=== PATIENT | female | born 1945 | race Caucasian/White ===

== ENCOUNTER 2016-06-17 11:55 | Emergency (ER) | payer MEDICARE ==
[2016-06-17 15:16] VITALS: BP 110/70
--- NOTE | 2016-06-17 15:41 | UC ---
Complaint Female HPI - HPI Summary HPI Summary: patient woke up with lower abdominal pain, dysuria and hematuria - History Of Current Complaint Chief Complaint: UCGU Stated Complaint: URINARY COMPLAINT Time Seen by Provider: 06/17/16 15:33 Hx Obtained From: Patient Hx Last Menstrual Period: n/a ?: No Onset/Duration: Sudden Onset Severity Initially: Mild Severity Currently: Mild Pain Intensity: 3 Pain Scale Used: 0-10 Numeric Character: Dull, Burning Aggravating Factor(s): Urination Alleviating Factor(s): Nothing Associated Signs And Symptoms: Positive: Negative - Allergies/Home Medications Allergies/Adverse Reactions: Allergies Allergy/AdvReac Type Severity Reaction Status Date / Time Codeine Allergy Severe Anaphylatic Verified 06/17/16 15:12 Shock Penicillins Allergy Severe Rash Verified 06/17/16 15:12 Metronidazole [From Flagyl] Allergy Intermediate neuropathy Verified 06/17/16 15 :12 Sulfa Drugs Allergy Intermediate Rash Verified 06/17/16 15:12 Dicyclomine [From Bentyl] Allergy tremor Verified 06/17/16 15:12 feeling in head/ brain Statins Allergy Muscle Ache Verified 06/17/16 15:12 Venlafaxine [From Effexor] Allergy Shakes Verified 06/17/16 15:12 Tramadol AdvReac Mild Anxiety Verified 06/17/16 15:12 PMH/Surg Hx/FS Hx/Imm Hx Previously Healthy: Yes Endocrine History Of: Reports: Thyroid Disease - Hypothyroidism Denies: Diabetes Cardiovascular History Of: Reports: Cardiac Disorders - cathetirization, no blockage Denies: Hypertension Respiratory History Of: Reports: Asthma Cancer History Of: Denies: Breast Cancer - Surgical History Surgical History: Yes Surgery Procedure, Year, and Place: adela. D&C. laparoscopy--1980, 1987, 2012. cardiac catheterization. Fx ankle 1979. B/L SALPINGECTOMY--12/2015. B/ L OOPHERECTOMY--12/2015 - Family History Known Family History: Positive: Hypertension - Social History Alcohol Use: None Substance Use Type: None Smoking Status (MU): Never Smoked Tobacco - Immunization History Most Recent Influenza Vaccination: Fall 2014 Most Recent Tetanus Shot: 2007 Review of Systems Constitutional: Negative Skin: Negative Eyes: Negative ENT: Negative Respiratory: Negative Cardiovascular: Palpitations Gastrointestinal: Abdominal Pain Genitourinary: Dysuria, Hematuria, Urgency Motor: Negative Neurovascular: Negative Musculoskeletal: Negative Neurological: Negative Psychological: Negative All Other Systems Reviewed And Are Negative: Yes Physical Exam Triage Information Reviewed: Yes Appearance: Well-Appearing, Well-Nourished, Pain Distress Vital Signs: Initial Vital Signs Temp 98.3 F 06/17/16 15:10 Pulse 74 06/17/16 15:10 Resp 16 06/17/16 15:10 BP 110/70 06/17/16 15:10 Pulse Ox 100 06/17/16 15:10 Vital Signs Reviewed: Yes Eye Exam: Normal Eyes: Positive: Conjunctiva Clear ENT Exam: Normal ENT: Positive: Normal ENT inspection, Pharyngeal erythema, TMs normal Dental Exam: Normal Neck exam: Normal Neck: Positive: Supple, Nontender, No Lymphadenopathy Respiratory Exam: Normal Respiratory: Positive: Chest non-tender, Lungs clear, Normal breath sounds Cardiovascular Exam: Normal Cardiovascular: Positive: RRR, No Murmur, Pulses Normal Abdominal Exam: Normal Abdomen Description: Positive: Nontender, No Organomegaly, Soft Bowel Sounds: Positive: Present Musculoskeletal Exam: Normal Musculoskeletal: Positive: Strength Intact, ROM Intact, No Edema Neurological Exam: Normal Neurological: Positive: Alert, Muscle Tone Normal Psychological Exam: Normal Skin Exam: Normal Complaint Female Dx - Course Course Of Treatment: hx obtained, exam performed, UA positive, medication prescribed. - Differential Dx/Diagnosis Differential Diagnosis/HQI/PQRI: Sexually Transmitted Disease, Ureteral Stone, Urinary Tract Infection Provider Diagnoses: UTI Discharge - Discharge Plan Condition: Stable Disposition: HOME Prescriptions: Nitrofurantoin Monohyd Macro [Macrobid] 100 mg PO BID #10 cap Patient Education Materials: Urinary Tract Infection in Women (ED) Referrals: Derrell Gandara MD [Primary Care Provider] - Additional Instructions: Take the medication as prescribed. Increase your fluid intake. Your urine was sent for culture.
== END 2016-06-17 15:50 | disposition home or self-care (01) ==
LOC: UCCORT 11:55
DX: N39.0 Urinary tract infection, site not specified (principal); Z88.5 Allergy status to narcotic agent; Z88.0 Allergy status to penicillin; Z88.2 Allergy status to sulfonamides; Z88.8 Allergy status to other drugs, medicaments and biological substances; J45.909 Unspecified asthma, uncomplicated
CPT/HCPCS: 87086; 99212; G0463

== ENCOUNTER 2016-11-26 07:19 | Emergency (ER) | payer MEDICARE ==
[2016-11-26 07:54] VITALS: BP 120/85
--- NOTE | 2016-11-26 07:57 | UC ---
Lower Extremity/Ankle HPI - HPI Summary HPI Summary: left foot pain and swelling x 1 days has been on a long walk/ hike few days ago no known injury - History of Current Complaint Chief Complaint: UCLowerExtremity Stated Complaint: LEFT FOOT PAIN Time Seen by Provider: 11/26/16 07:40 Hx Obtained From: Patient, Family/Scrummaster Hx Last Menstrual Period: n/a Onset/Duration: Gradual Onset, Lasting Days - 1, Still Present Severity Initially: Moderate Severity Currently: Moderate Aggravating Factor(s): Standing, Ambulation Alleviating Factor(s): Nothing Able to Bear Weight: Yes - Allergies/Home Medications Allergies/Adverse Reactions: Allergies Allergy/AdvReac Type Severity Reaction Status Date / Time Codeine Allergy Severe Anaphylatic Verified 11/26/16 07:23 Shock Penicillins Allergy Severe Rash Verified 11/26/16 07:23 Metronidazole [From Flagyl] Allergy Intermediate neuropathy Verified 11/26/16 07 :23 Sulfa Drugs Allergy Intermediate Rash Verified 11/26/16 07:23 Dicyclomine [From Bentyl] Allergy tremor Verified 11/26/16 07:23 feeling in head/ brain Statins Allergy Muscle Ache Verified 11/26/16 07:23 Venlafaxine [From Effexor] Allergy Shakes Verified 11/26/16 07:23 Tramadol AdvReac Mild Anxiety Verified 11/26/16 07:23 Home Medications: Home Medications Azelastine 0.15% NASAL(NF) [Astepro 0.15% NASAL (NF)] 1 spray NASAL DAILY [History Confirmed 11/26/16] PMH/Surg Hx/FS Hx/Imm Hx Previously Healthy: Yes - Surgical History Surgical History: Yes Surgery Procedure, Year, and Place: adela. D&C. laparoscopy--1980, 1987, 2012. cardiac catheterization. Fx ankle 1979. B/L SALPINGECTOMY--12/2015. B/ L OOPHERECTOMY--12/2015 - Family History Known Family History: Positive: Hypertension - Social History Alcohol Use: None Substance Use Type: None Smoking Status (MU): Never Smoked Tobacco - Immunization History Most Recent Influenza Vaccination: Fall 2014 Most Recent Tetanus Shot: 2007 Review of Systems Constitutional: Negative Skin: Negative Eyes: Negative ENT: Negative Respiratory: Negative Cardiovascular: Negative Musculoskeletal: Other: - left foot and ankle pain All Other Systems Reviewed And Are Negative: Yes Physical Exam Triage Information Reviewed: Yes Appearance: Well-Appearing, No Pain Distress, Well-Nourished Vital Signs: Initial Vital Signs Temp 98 F 11/26/16 07:28 Pulse 65 11/26/16 07:28 Resp 18 11/26/16 07:28 BP 120/85 11/26/16 07:28 Pulse Ox 98 11/26/16 07:28 Vital Signs Reviewed: Yes Eyes: Positive: Conjunctiva Clear ENT: Positive: Normal ENT inspection, Hearing grossly normal, Pharynx normal Neck exam: Normal Neck: Positive: Supple, Nontender Respiratory: Positive: Chest non-tender, Lungs clear, Normal breath sounds Cardiovascular: Positive: RRR, No Murmur, Pulses Normal Musculoskeletal: Positive: Other: - left ankle : + mild swelling lateral ankle, mild tenderenss lateral ankle , no ecchymosis, good ROM , good strength left foot: no swelling, + tenderness 5th metatarsal mid shaft Lower Extremity Course/Dx - Differential Dx/Diagnosis Provider Diagnoses: strain left foot. strain left ankle Discharge - Discharge Plan Condition: Stable Disposition: HOME Patient Education Materials: Ankle Strain (ED), Foot Sprain (ED) Referrals: Derrell Gandara MD [Primary Care Provider] - 7 Days
--- NOTE | 2016-11-26 08:12 | RAD ---
INDICATION: Left foot pain. TECHNIQUE: 3 views of the left foot were obtained. FINDINGS: The bones are in normal alignment. No fracture is seen. Joint spaces appear maintained. There are small calcaneal spurs. IMPRESSION: 1. NO EVIDENCE FOR FRACTURE. 2. SMALL CALCANEAL SPURS.
== END 2016-11-26 08:10 | disposition home or self-care (01) ==
LOC: UCCORT 07:19
DX: S96.912A Strain of unspecified muscle and tendon at ankle and foot level, left foot, initial encounter (principal); X58.XXXA Exposure to other specified factors, initial encounter; Y93.9 Activity, unspecified; Y92.9 Unspecified place or not applicable; M77.32 Calcaneal spur, left foot; Z90.49 Acquired absence of other specified parts of digestive tract; Z88.5 Allergy status to narcotic agent; Z88.1 Allergy status to other antibiotic agents; Z88.0 Allergy status to penicillin; Z88.2 Allergy status to sulfonamides
CPT/HCPCS: 99212; G0463

== ENCOUNTER 2017-11-05 12:25 | Emergency (ER) | payer MEDICARE ==
--- OUTSIDE RECORDS SUMMARY | 2017-11-05 12:45 | XMS REPORT ---
:1945 Author Name sound, ultra Care Team Providers Name Role Phone sound, ultra Unavailable Unavailable PROBLEMS Type Condition ICD9-CM [id number] Onset Condition SNOMED Code Code Code Dates Status Problem Other ovarian N83.29 Active 82473369 cysts Problem Benign essential R31.1 Active 245961226021894 microscopic hematuria Problem Unspecified N83.20 Active 19085229 ovarian cysts Problem Family history of Z80.0 Active 967115126 malignant neoplasm of digestive organs Problem Anal spasm K59.4 Active 55633257 Problem Postmenopausal N95.2 Active 01193001 atrophic vaginitis ALLERGIES No Information ENCOUNTERS Encounter Location Date Diagnosis [facility] Apr, [place] [id number] [facility] Apr, [place] [id number] [facility] October, [facility] [place] [id number] other specified body structures R93.8 ; Postmenopausal atrophic vaginitis N95.2 and Encounter for screening mammogram for malignant neoplasm of breast Z12.31 [facility] 14 Oct, 2017 [facility] [place] [id number] other specified body structures R93.8 [facility] Sep, [place] [id number] [facility] Jun, [facility] [place] [id number] other specified body structures R93.8 and Postmenopausal atrophic vaginitis N95.2 [place] [facility] Jun, [facility] [place] [id number] other specified body structures R93.8 [facility] Apr, [facility] [place] [id number] other specified body structures R93.8 and Postmenopausal atrophic vaginitis N95.2 [place] [facility] Apr, [facility] [place] [id number] other specified body structures R93.8 [place] [facility] Mar, [facility] [place] [id number] other specified body structures R93.8 and Postmenopausal atrophic vaginitis N95.2 [place] [facility] Mar, Abnormal findings on [facility], diagnostic imaging of [place] [id number] other specified body structures R93.8 [place] [facility] Mar, [facility] [place] [id number] [facility] Mar, [facility] [place] [id number] other specified body structures R93.8 [facility] Mar, Abnormal findings on [facility], diagnostic [place] [id number] other specified body structures R93.8 [facility] Mar[facility] [place] [id number] [place] [facility] Mar, [facility] [place] [id number] other specified body structures R93.8 and Postmenopausal atrophic vaginitis N95.2 [place] [facility] Jan, Abnormal findings on [facility], diagnostic imaging [place] [id number] other specified body structures R93.8 ; Benign essential microscopic hematuria R31.1 and Postmenopausal atrophic vaginitis N95.2 [facility] [facility] [address] [place], Dec, [facility] [place] [id number] [facility] Dec, [facility] [place] [id number] other specified body structures R93.8 [facility] Nov, OBGYN [facility], [place] [id number] [place] [facility] Nov, Abnormal findings on OBGYN [facility], diagnostic imaging [place] [id number] other specified body structures R93.8 [facility] October, [facility] [place] [id number] other specified body structures R93.8 [facility] October, [facility] [place] [id number] other specified body structures R93.8 [facility] October, Abnormal findings on OBGYN [facility], diagnostic imaging [place] [id number] other specified body structures R93.8 [facility] October, OBGYN [facility], [place] [id number] [facility] October, [facility] [place] [id number] other specified body structures R93.8 [facility] October, [facility] [place] [id number] other specified body structures R93.8 [facility] October, Encounter for [facility], gynecological examination [place] [id number] (general) (routine) without abnormal findings Z01.419 ; Encounter for screening mammogram for malignant neoplasm of breast Z12.31 ; Encounter for screening for malignant neoplasm of colon Z12.11 ; Hematuria, unspecified R31.9 and Postmenopausal atrophic vaginitis N95.[address] Feb, OTHER POSTOP INFECTION [address] [place], [address] [place] [id number] [place] [facility] Jan, Other ovarian cysts N83.29 [place], [place] [id number] [place] [facility] Dec, OBG[place] [id number] [facility] [address] [place], Dec, Ovarian cyst NOS 620.2 [facility] [id number] [place] [facility] Dec, [place], [place] [id number] [place] [facility] Dec, [place], [place] [id number] [place] [facility] Dec, [place], [place] [id number] [place] [facility] Dec, Other ovarian cysts N83.29 [place], [place] [id number] [place] [facility] Nov, [place], [place] [id number] [facility] [address] [facility] Nov, Other ovarian cysts N83.[address] [place], ; Benign essential [place] [id number] microscopic hematuria R31.1 and Anal spasm K59.4 [place] [facility] Nov, OBG[place], [place] [id number] [place] [facility] Nov, Other ovarian cysts N83.29 OBGYN [facility], and Benign essential [place] [id number] microscopic hematuria R31.1 [place] [facility] Nov, Other ovarian cysts N83.29 [place], [place] [id number] [place] [facility] October, [place], [place] [id number] [place] [facility] October, O[place], [place] [id number] [place] [facility] October, Encounter for OBN [facility], gynecological examination [place] [id number] (general) (routine) without abnormal findings Z01.419 ; Other ovarian cysts N83.29 ; Encounter for screening mammogram for malignant neoplasm of breast Z12.31 ; Encounter for screening for malignant neoplasm of colon Z12.11 ; Family history of malignant neoplasm of digestive organs Z80.0 and Other microscopic hematuria R31.2 [place] [facility] October, Other ovarian cysts N83.29 [place] [id number] [place] [facility] Mar, [facility] [place] [id number] [place] [facility] Mar, Unspecified ovarian cysts OBGYN [facility] N83.20 [place] [id number] [place] [facility] October, [place], [place] [id number] [place] [facility] October, OBG[place], [place] [id number] [place] [facility] Sep, PAP SMEAR W/O HEAD STILL OPERATOR EXAM OBGYN [facility], V76.2 ; SCREEN MALIG MS [id number] NEOP-COLON V76.51 ; SCREEN MAMMOGRAM [facility] V76.12 and Ovarian cyst NOS 620.2 [place] [facility] Sep, Ovarian cyst NOS 620.2 [place]BG[place], [place] [id number] [place] [facility] October, [place], [place] [id number] [place] [facility] October, [place] [id number] [place] [facility] 14 Sep, 2013 ROUTINE HEAD STILL OPERATOR EXAMINATION OBGYN [facility], V72.31 ; Ovarian cyst NOS MS [id number] 620.2 ; PAP SMEAR W/O HEAD STILL OPERATOR EXAM V76.2 ; SCREEN MALIG NEOP-COLON V76.51 ; SCREEN MAMMOGRAM NEC V76.12 and FAMILY HX-GI MALIGNANCY V16.0 [place] [facility] 14 Sep, 2013 Ovarian cyst NOS 620.2 [place], [place] [id number] [place] [facility] Sep, ROUTINE HEAD STILL OPERATOR EXAMINATION OBGYN [facility], V72.31 ; SCREEN MALIG MS [id number] NEOP-COLON V76.51 and SCREEN MAMMOGRAM NEC V76.12 [place] [facility] Sep, Ovarian cyst NOS 620.2 [place] [id number] [place] [facility] Jan, Ovarian cyst NOS 620.2 [place], [place] [id number] [place] [facility] Dec, Ovarian cyst NOS 620.2 [place], [place] [id number] [place] [facility] Nov, [place], [place] [id number] [place] [facility] October, Ovarian cyst NOS 620.2 [place] [id number] [place] [facility] October, Ovarian cyst NOS 620.2 [place], [place] [id number] [place] [facility] Sep, [place], [place] [id number] [place] [facility] Sep, ROUTINE HEAD STILL OPERATOR EXAMINATION OBGYN [facility], V72.31 ; PAP SMEAR W/O HEAD STILL OPERATOR MS [id number] EXAM V76.2 ; SCREEN MALIG NEOP-COLON V76.51 and Ovarian cyst NOS 620.2 [facility] 103 Sep, Ovarian cyst NOS 620.2 OBG[place], [place] [id number] [facility] Jul, Ovarian cyst NOS 620.2 [place], [place] [id number] [facility] [address] Jul, Ovarian cyst NOS 620.2 [place], [place] [id number] [facility] [address] Jun, Ovarian cyst NOS 620.2 [place], [place] [id number] IMMUNIZATIONS No Known Immunizations SOCIAL HISTORY Never Assessed REASON FOR REFERRAL FUNCTIONAL STATUS PLAN OF CARE VITAL SIGNS MEDICATIONS Unknown Medications PROCEDURES Procedure Date Ordered Result Body Site TRANSVAGINAL US, NON-OB October 27, 2017 RESULTS Name Result Date Reference Range Ultrasound : Pelvis REASON FOR VISIT US MEDICAL (GENERAL) HISTORY Type Description Date Medical History anemia Medical History asthma Medical History rheumatic fever - some minor damage Medical History sublclinical hypothyroid Medical History IBS Medical History fibromyalgia Medical History prolapsed bladder Medical History diverticulosis Medical History trouble hearing Medical History chronic pancreatitis Surgical History Laproscopy 1980 Surgical History laproscopy - hernia repair 1986 Surgical History gall bladder removal 1987 Surgical History D&C - atypical cells 1988 Surgical History cardiac catherization 2009 Surgical History laparoscopy for adhesions on her colon 04/28 Surgical History Lap BSO 01/10/16 Surgical History hysteroscopy, D&C 01/07/17 Hospitalization History childbirth Hospitalization History chest pain 2008 Hospitalization History pancreatitis 2009 Hospitalization History overnight stay for chest pain, aching in Lt arm
--- OUTSIDE RECORDS SUMMARY | 2017-11-05 12:46 | XMS REPORT ---
:1945 Author Organization [facility] Address [address] [place] [address] Care Team Providers Name Role Phone Keyonna Blank Unavailable Unavailable PROBLEMS Type Condition ICD9-CM [id number] Onset Condition SNOMED Code Code Code Dates Status Problem Other ovarian N83.29 Active 74778593 cysts Problem Benign essential R31.1 Active 176956863040135 microscopic hematuria Problem Unspecified N83.20 Active 67471484 ovarian cysts Problem Family history of Z80.0 Active 957287420 malignant neoplasm of digestive organs Problem Anal spasm K59.4 Active 90605356 Problem Postmenopausal N95.2 Active 71879089 atrophic vaginitis ALLERGIES Substance Reaction Event Type Date Status tramadol serious headache Drug Allergy October, Active codeine chest pain Drug Allergy October, Active Niaspan ER itching, burning Drug Allergy October, Active Flagyl peripheral neuropathy Drug Allergy October, Active Effexor tremors Drug Allergy October, Active Cipro rash Drug Allergy October, Active Sulfa rash Drug Allergy October, Active Penicillin rash Drug Allergy October, Active statins increased pain Non Drug Allergy October, Active ENCOUNTERS Encounter Location Date Diagnosis [facility] [address] Apr, OBGYN [place], [place] [id number] [facility] 103 Apr, OBGYN [place], [place] [id number] [facility] 103 October, Abnormal findings on OBGYN [facility], diagnostic imaging [place] [id number] other specified body structures R93.8 ; Postmenopausal atrophic vaginitis N95.2 and Encounter for screening mammogram for malignant neoplasm of breast Z12.31 [facility] [address] 14 Oct, 2017 Abnormal findings on OBGYN [facility], diagnostic imaging of [place] [id number] other specified body structures R93.8 [facility] Sep, [facility] [place] [id number] [place] [facility] 103 Jun, Abnormal findings on [facility], diagnostic imaging [place] [id number] other specified body structures R93.8 and Postmenopausal atrophic vaginitis N95.2 [place] [facility] 103 Jun, [facility] [place] [id number] other specified body structures R93.8 [place] [facility] 103 Apr, Abnormal findings on [facility], diagnostic imaging [place] [id number] other specified body structures R93.8 and Postmenopausal atrophic vaginitis N95.2 [place] [facility] 103 Apr, Abnormal findings on [facility], diagnostic imaging [place] [id number] other specified body structures R93.8 [place] [facility] 103 Mar, [facility] [place] [id number] other specified body structures R93.8 and Postmenopausal atrophic vaginitis N95.2 [place] [facility] 103 Mar, Abnormal findings on [facility], diagnostic imaging [place] [id number] other specified body structures R93.8 [place] [facility] 103 Mar, [facility] [place] [id number] [place] [facility] 103 Mar, [facility] [place] [id number] other specified body structures R93.8 [place] [facility] 103 Mar, Abnormal findings on [facility], diagnostic imaging [place] [id number] other specified body structures R93.8 [place] [facility] 103 Mar, [facility] [place] [id number] [place] [facility] 103 Mar, [facility] [place] [id number] other specified body structures R93.8 and Postmenopausal atrophic vaginitis N95.2 [place] [facility] 103 Jan, Abnormal findings on [facility], diagnostic imaging [place] [id number] other specified body structures R93.8 ; Benign essential microscopic hematuria R31.1 and Postmenopausal atrophic vaginitis N95.2 [facility] [address] [place], Dec, [facility] [place] [id number] [facility] 103 Dec, Abnormal findings on [facility], diagnostic imaging [place] [id number] other specified body structures R93.8 [facility] 103 Nov, [facility] [place] [id number] [place] [facility] 103 Nov, [facility] [place] [id number] other specified body structures R93.8 [place] [facility] 103 October, [facility] [place] [id number] other specified body structures R93.8 [place] [facility] 103 October, Abnormal findings on [facility], diagnostic imaging [place] [id number] other specified body structures R93.8 [place] [facility] 103 October, [facility] [place] [id number] other specified body structures R93.8 [place] [facility] 103 October, [facility] [place] [id number] [place] [facility] 103 October, Abnormal findings on [facility], diagnostic imaging [place] [id number] other specified body structures R93.8 [place] [facility] 103 October, [facility] imaging of [place] [id number] other specified body structures R93.8 [place] [facility] 103 October, Encounter for [facility], gynecological examination [place] [id number] (general) (routine) without abnormal findings Z01.419 ; Encounter for screening mammogram for malignant neoplasm of breast Z12.31 ; Encounter for screening for malignant neoplasm of colon Z12.11 ; Hematuria, unspecified R31.9 and Postmenopausal atrophic vaginitis N95.[address] [place] [facility] [address] [facility] Feb, OTHER POSTOP INFECTION [address] [place], [address] [place] [id number] [place] [facility] 103 Jan, Other ovarian cysts N83.29 [place], [place] [id number] [place] [facility] 103 Dec, [place], [place] [id number] [facility] [address] [place], Dec, Ovarian cyst NOS 620.2 [facility] [place] [id number] [place] [facility] 103 Dec, [place], [place] [id number] [place] [facility] 103 Dec, [place], [place] [id number] [place] [facility] 103 Dec, [place], [place] [id number] [place] [facility] 103 Dec, Other ovarian cysts N83.29 [place] [id number] [place] [facility] 103 Nov, [place], [place] [id number] [place] [facility] [address] [facility] Nov, Other ovarian cysts N83.[address] [address] [place], ; Benign essential [place] [id number] microscopic hematuria R31.1 and Anal spasm K59.4 [place] [facility] 103 Nov, [place] [id number] [place] [facility] 103 Nov, Other ovarian cysts N83.29 OBGYN [facility], and Benign essential [place] [id number] microscopic hematuria R31.1 [place] [facility] 103 Nov, Other ovarian cysts N83.29 [place] [id number] [place] [facility] 103 October, OBG[place] [id number] [facility] [facility] 103 October, [place] [id number] [place] [facility] 103 October, Encounter for [facility] gynecological examination [place] [id number] (general) (routine) without abnormal findings Z01.419 ; Other ovarian cysts N83.29 ; Encounter for screening mammogram for malignant neoplasm of breast Z12.31 ; Encounter for screening for malignant neoplasm of colon Z12.11 ; Family history of malignant neoplasm of digestive organs Z80.0 and Other microscopic hematuria R31.2 [place] [facility] 103 October, Other ovarian cysts N83.29 [place] [id number] [place] [facility] 103 Mar, Unspecified [facility] N83.20 [place] [id number] [place] [facility] 103 Mar, Unspecified ovarian cysts OBN [facility], N83.20 [place] [id number] [place] [facility] 103 October, OBG[place], [place] [id number] [place] [facility] 103 October, [place] [id number] [place] [facility] 103 Sep, 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 OBGYN [facility] V76.2 ; SCREEN MALIG [place] [id number] NEOP-COLON V76.51 ; SCREEN MAMMOGRAM NEC V76.12 and Ovarian cyst NOS 620.2 [place] [facility] 103 Sep, Ovarian cyst NOS 620.2 OBG[place], [place] [id number] [place] [facility] 103 October, OBG[place], [place] [id number] [place] [facility] 103 October, OBGYN [place], [place] [id number] [place] [facility] 103 Sep, ROUTINE [employer]IST SUPERVISOR EXAMINATION OBGYN [facility], V72.31 ; Ovarian cyst NOS [place] [id number] 620.2 ; 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 V76.2 ; SCREEN MALIG NEOP-COLON V76.51 ; SCREEN MAMMOGRAM NEC V76.12 and FAMILY HX-GI MALIGNANCY V16.0 [place] [facility] 103 Sep, Ovarian cyst NOS 620.2 OBG[place], [place] [id number] [place] [facility] 103 Sep, ROUTINE [employer]IST SUPERVISOR EXAMINATION OBGYN [facility], V72.31 ; SCREEN MALIG [place] [id number] NEOP-COLON V76.51 and SCREEN MAMMOGRAM NEC V76.12 [place] [facility] 103 Sep, Ovarian cyst NOS 620.2 OBGYN [place], [place] [id number] [place] [facility] 103 Jan, Ovarian cyst NOS 620.2 OBG[place], [place] [id number] [place] [facility] 103 Dec, Ovarian cyst NOS 620.2 OBG[place], [place] [id number] [place] [facility] 103 Nov, OBGYN [place], [place] [id number] [place] [facility] 103 October, Ovarian cyst NOS 620.2 OBG[place], [place] [id number] [place] [facility] 103 October, Ovarian cyst NOS 620.2 OBG[place] [id number] [facility] 103 Sep, OBG[place], [place] [id number] [facility] 103 Sep, ROUTINE [employer]IST SUPERVISOR EXAMINATION OBGYN [facility], V72.31 ; PAP SMEAR W/O FOREST FI[employer] SPECIALIST SUPERVISOR [place] [id number] EXAM V76.2 ; SCREEN MALIG NEOP-COLON V76.51 and Ovarian cyst NOS 620.2 [facility] 103 Sep, Ovarian cyst NOS 620.2 OBGYN [place], [place] [id number] [facility] 103 Jul, Ovarian cyst NOS 620.2 [place] [id number] [facility] 103 Jul, Ovarian cyst NOS 620.2 OBG[place], [place] [id number] [facility] 103 Jun, Ovarian cyst NOS 620.2 [place] [id number] IMMUNIZATIONS No Known Immunizations SOCIAL HISTORY Never Assessed REASON FOR REFERRAL FUNCTIONAL STATUS PLAN OF CARE Activity Details Follow Up Schedule US and f/u in 6 months. Annual 1 Year, schedule mammogram after 11-05-17 Reason: Pending Test Mammogram, Routine Screening - bilateral VITAL SIGNS Height 65 in 2017-10-27 Weight 148 lbs 2017-10-27 BMI 24.63 kg/m2 2017-10-27 Blood pressure systolic 126 mm Hg 2017-10-27 Blood pressure diastolic 78 mm Hg 2017-10-27 MEDICATIONS Medication Instructions Dosage Frequency Start End Duration Status Date Date Creon 24,000 orally 3 times a 1 cap(s) 8h Active units-76,000 day units-120,000 units Vitamin D3 1000 orally once a day 1 cap(s) 24h Active intl units Nasonex 50 intranasally once 2 spray(s) 24h Active mcg/inh a day Fish Oil 500 mg orally once a day 2 cap(s) 24h Active Zetia 10 mg orally once a day 1 tab(s) 24h Active citalopram 20 mg orally once a day 1 tab(s) 24h Active Premarin Vaginal intravaginally 0.25 g 30 days Active 0.625 mg/g once a day (in the evening) x 3 weeks, then 1-2x/week atorvastatin 10 orally twice 1 tab(s) Active mg weekly Potassium 1 tab 24h Active Gluconate 595 meq Probiotic orally once a day 1 cap(s) 24h Active Formula - Protonix 40 mg orally once a day 1 tab(s) 24h Active Flovent HFA CFC inhaled 2 times a 2 puff(s) 12h Active free 110 mcg/inh day Levothyroid 50 Oral qd 1 tab 24h Active mcg ProAir HFA 90 inhaled 4 times a 2 puff(s) 6h Active mcg/inh day MiraLax - orally once a day 24h Active Prevalite orally qd 24h Active Packets 4 g/5.5 g PROCEDURES Procedure Date Ordered Result Body Site PRES/ABSN URINE INCON ASSESS October 27, 2017 DOC MEDS VERIFIED W/PT OR RE October 27, 2017 Scrn jarod perf rslts doc October 27, 2017 RESULTS No Results REASON FOR VISIT US follow up, Pt does not want to do the Annual as insurance will not cover MEDICAL (GENERAL) HISTORY Type Description Date Medical [...] History chest pain 2008 Hospitalization History pancreatitis 2010 Hospitalization History overnight stay for chest pain, aching in Lt arm
--- OUTSIDE RECORDS SUMMARY | 2017-11-05 12:46 | XMS REPORT ---
:1945 External Reference #:[id number] Author Organization [facility] Address [address], [address] [place] [address] Phone [phone] Care Team Providers Name Role Phone Derrell Gandara MD Care Team Information Bass Fisher Unavailable Derrell Gandara MD Primary Care Physician Unavailable Payers Type Date Identification Numbers Payment Provider Subscriber Medicare Primary Policy Number: [id number] Medicare Josiane Shafer PayID: [id number] [address] [place] [address] [facility] Policy Number: [id number] [facility] Josiane Shafer PayID: [id number] [address] [place] [address] Problems Date Description Provider Status Onset: 01/08/2016 Hyperlipidemia Antionette Will DO Active Onset: 07/18/2017 Depressive disorder Antionette Will DO Active Onset: 10/25/2016 Abnormal findings on diagnostic imaging Antionette Will DO Active of body structures Onset: 10/25/2016 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 Onset: 10/25/2016 Acute sinusitis Antionette Will DO Active Onset: 10/25/2016 Abdominal pain Antionette Will DO Active Onset: 04/01/2016 Digestive symptom Antionette Will DO Active Onset: 01/08/2016 Essential thrombocythemia Antionette Will DO Active Family History Date Family Member(s) Problem(s) Comments Father due to Cardiac Bypass () Father 70 Father due to liver failure () Father due to Kidney Disease () Mother 76 Mother due to Stroke () Mother Hypertension Mother due to Colon Cancer () Mother Stroke Children 1 Siblings 1 Social History Type Date Description Comments Marital Status Lives With Diet Vegetarian ETOH Use Denies alcohol use Smoking Patient denies history of smoking Recreational Drug Use Denies Drug Use Daily Caffeine Does Not Consume Caffeine Exercise Type/Frequency Exercises rarely Allergies, Adverse Reactions, Alerts Date Description Reaction Status Severity Comments 01/08/2016 Codeine CHEST PAIN active 01/08/2016 Penicillin RASH active 01/08/2016 Sulfa Drugs RASH active 01/08/2016 Flagyl NEUROPATHY active 01/08/2016 Tramadol DIZZYNESS/DISORIENTATION active 01/08/2016 Statins MUSCLE PAIN active Medications Medication Date Status Form Strength Qnty SIG Indications Ordering Provider Folic Acid 01/07 Active Capsules 30cap 1 by mouth Antionette /2015 s every day DO Suman Levothyroxine Active Tablets 50mcg 1 by mouth Unknown Sodium /0000 every day [place] [id number] take 1 Unknown /0000 Part capsule by mouth three times a day before meals Zetia Active Tablets 10mg 1 by mouth Unknown /0000 every day Nasonex Active Suspension 50mcg/Act 2 sprays Unknown /0000 each nostril every day Vitamin D3 Active Tablets 1 by mouth Unknown Complete /0000 every day Potassium Active Tablets 99mg 1 by mouth Unknown /0000 every day Pantoprazole Active Tablets DR 40mg 1 by mouth Unknown Sodium /0000 every day Flovent HFA Active Aerosol 2 puff twice Unknown /0000 a day Calcium 00 Active Tablets 600mg 1 tab every Unknown /0000 day Colon Health 00 Active 1 po qday Unknown /0000 Magnesium Active Capsules 500mg take 1 tab Unknown /0000 by mouth every daily Miralax Active Packet 17g by mouth Unknown /0000 qday Lipitor Active Tablets 10mg 1 by mouth Unknown /0000 Twice A Week Proair HFA Active Aerosol 108(90Bas 2 Unknown /0000 e) inhalations mcg/Act every 4 hours as needed Premarin Active Cream 0.625mg/G apply pea Unknown /0000 M size amount to vaginal opening at bedtime twice a week Ibguard Active 6 caps po Unknown /0000 qday Levaquin 10/25 Hx Tablets 500mg 7tabs 1 tabl by Antionette mouth every Boufal, - day DO 11/19 Miralax 01/07 Hx Powder 3350NF 510gm 1 tablespoon in 8 ounces Boufal, - of water DO 01/08 twice a day Ventolin HFA Hx Aerosol 108(90Bas 1-2 puffs Unknown /0000 e) every 4-6 mcg/Act hours as needed Citalopram Hx Tablets 20mg 1 by mouth Unknown Hydrobromide /0000 every day Desloratadine Hx Tablets 5mg 1 tab by Unknown /0000 mouth every - day as 11/19 congestion Metamucil Hx Unknown Wafers /0000 - 01/23 Vitamin B Hx Tablets 90tab 1 by mouth Unknown Complex /0000 s every day - 10/20 Lotrisone Hx Cream 1-0.05% apply to Unknown /0000 affected - areas twice 11/19 daily for to 2 weeks Azelastine HCL Hx Solution 0.15% [place] 1 2 Unknown (Nasal) /0000 Sprays In Each Nostril Daily Vital Signs Date Vital Result Comment 10/20/2017 BP Systolic 104 mmHg BP Diastolic 58 mmHg Body Temperature 98.1 F Heart Rate 80 /min Respiratory Rate 16 /min Weight 150.38 lb BSA (Body Surface Area) 1.73 m2 [place] body weight in kilograms 54 O2 % BldC Oximetry 97 % Pain Level 4 Rt low back and abd pain 07/18/2017 BP Systolic 118 mmHg BP Diastolic 76 mmHg Body Temperature 97.7 F Heart Rate 78 /min Weight 154.00 lb O2 % BldC Oximetry 95 % 04/22/2017 BP Systolic 135 mmHg BP Diastolic 81 mmHg Body Temperature 96.5 F 35.9c Heart Rate 64 /min Respiratory Rate 21 /min Height 65 inches 5'5" Weight 159.00 lb BMI (Body Mass Index) 26.5 kg/m2 BSA (Body Surface Area) 1.79 m2 [place] body weight in kilograms 57 O2 % BldC Oximetry 98 % 01/15/2017 BP Systolic 131 mmHg BP Diastolic 68 mmHg Body Temperature 97.2 F Heart Rate 78 /min Weight 160.50 lb O2 % BldC Oximetry 95 % 11/19/2016 BP Systolic 134 mmHg BP Diastolic 85 mmHg Body Temperature 96.4 F Heart Rate 71 /min Weight 161.00 lb O2 % BldC Oximetry 98 % 10/25/2016 BP Systolic Sitting Right Arm 126 mmHg BP Diastolic Sitting Right Arm 82 mmHg Body Temperature 98.0 F Heart Rate 81 /min Respiratory Rate 149 /min Weight 157.00 lb O2 % BldC Oximetry 99 % 04/17/2016 BP Systolic 120 mmHg BP Diastolic 72 mmHg Body Temperature 97.8 F Heart Rate 71 /min Respiratory Rate 20 /min Weight 152.38 lb O2 % BldC Oximetry 99 % 04/01/2016 BP Systolic 123 mmHg BP Diastolic 86 mmHg Body Temperature 97.8 F Heart Rate 73 /min Respiratory Rate 20 /min Weight 153.00 lb O2 % BldC Oximetry 90 % 2016 BP Systolic 104 mmHg BP Diastolic 61 mmHg Body Temperature 98.1 F Heart Rate 75 /min Respiratory Rate 20 /min Height 65.5 inches 5'5.50" Weight 157.00 lb BMI (Body Mass Index) 25.7 kg/m2 BSA (Body Surface Area) 1.79 m2 O2 % BldC Oximetry 100 % 01/08/2016 BP Systolic 127 mmHg BP Diastolic 92 mmHg Body Temperature 97.5 F Heart Rate 70 /min Respiratory Rate 16 /min Height 65.5 inches 5'5.50" Weight 157.25 lb BMI (Body Mass Index) 25.8 kg/m2 BSA (Body Surface Area) 1.80 m2 [place] body weight in kilograms 58 O2 % BldC Oximetry 97 % Results Test Date Test Result H/L Range Note Ua RFX Micro & Culture II 07/18/2017 Urine Color YELLOW Yellow 1 Urine Clarity CLEAR Clear 1 Urine Glucose - Dipstick NEGATIVE mg/dL Negative 1 Urine Bilirubin - Dipstick NEGATIVE Negative 1 Urine Ketone NEGATIVE mg/dL Negative 1 Urine Specific [place] <=1.005 Low 1.010-1.030 1 Urine Blood TRACE Negative 1 Urine PH 6.5 6.5-7.5 1 Urine Protein - Dipstick NEGATIVE mg/dL Negative 1 Urine Urobilinogen - Dipstick 0.2 E.U./dL 0.2-1.0 1 Urine Nitrite - Dipstick NEGATIVE Negative 1 Urine Leuk Esterase NEGATIVE Negative 1 Urine Culture 07/18/2017 Urine Culture URETHRAL JENNY 1 Quantity 10,000 - 50,000 <SEE NOTE> 1, 2 Comprehensive Metabolic Panel 07/11/2017 Glucose 90 mg/dL 74-106 3 BUN 8 mg/dL 7-18 3 Creatinine 1.0 mg/dL 0.6-1.3 3 Glom Filtration Rate, Estimate 58 mL/min >60 3 If >60 mL/min >60 3, 4 BUN/Creat 8.0 ratio 3 Sodium 143 mmol/L 136-145 3 Potassium 4.2 mmol/L 3.5-5.1 3 Chloride 108 mmol/L High 98-107 3 Carbon Dioxide 31 mmol/L 21-32 3 Anion Gap 4 mEq/L Low 8-16 3 Calcium 9.7 mg/dL 8.5-10.1 3 Total Protein 7.4 g/dL 6.4-8.2 3 Albumin 3.5 g/dL 3.4-5.0 3 Globulin 3.9 g/dL 1.9-4.3 3 Alb/Glob 0.9 ratio 3 Bilirubin,Total 0.4 mg/dL 0.2-1.0 3 Sgot/Ast 21 U/L 15-37 3 SGPT/Alt 22 U/L 12-78 3 Alkaline Phosphatase 79 U/L 45-117 3 Laboratory test finding 07/11/2017 Ferritin 8 ng/mL 8-252 3 Vitamin D,25-Hydroxy 43.0 ng/mL 30.0-100.0 3, 5 CBS W/Automated Diff 07/11/2017 White Blood Count 6.9 K/uL 3.1-10.7 3 Red Blood Count 4.67 M/uL 3.90-5.40 3 Hemoglobin 13.6 gm/dL 11.6-15.8 3 Hematocrit 42.0 % 36.0-46.1 3 Mean Cell Volume 89.9 fl 80.9-99.0 3 Mean Corpuscular HGB 29.1 pg 25.9-32.7 3 Mean Corpuscular HGB Conc 32.4 g/dL 30.8-34.3 3 Platelet Count 460 K/uL High 155-360 3 Red Cell Distri Width SD 44.0 fl 3-47 3 Red Cell Distri Width %CV 13.8 % 11.7-14.4 3 Mean Platelet Volume 8.9 fL 8.9-12.4 3 Neut% 54.2 % 40.4-72.8 3 Lymph % 28.6 % 20.0-42.0 3 [place] % 7.0 % 4.3-13.2 3 Eo% 8.0 % High 0.0-6.6 3 Bas% 2.2 % High 0.0-1.1 3 Neut# 3.73 K/uL 1.8-7.0 3 Lymph # 1.97 K/uL 1.0-4.0 3 [place] # 0.48 K/uL 0.3-0.9 3 Eos # 0.55 K/uL High 0.0-0.5 3 Baso # 0.15 K/uL High 0.0-0.1 3 Laboratory test finding 07/11/2017 Sedimentation Rate 20 mm/hr 0-30 3, 6 Iron-Tibc-%Sat 07/11/2017 Serum Iron 82 g/dL 50-170 3 Total Iron Binding Capacity 392 g/dL 250-450 3 Transferrin %Saturation 21 % 12-57 3 Vitamin B12 And Folate 07/11/2017 Vitamin B12 527 pg/mL 193-986 3 Folic Acid > 20.0 ng/mL High 3.1-17.5 3 Urine Culture 04/22/2017 Urine Culture URETHRAL JENNY 7 Quantity > 100,000 CFU/mL 7, 8 Ua Routine 04/22/2017 Urine Color YELLOW Yellow 7 Urine Clarity CLOUDY Clear 7 Urine Glucose - Dipstick NEGATIVE mg/dL Negative 7 Urine Bilirubin - Dipstick NEGATIVE Negative 7 Urine Ketone NEGATIVE mg/dL Negative 7 Urine Specific [place] 1.015 1.010-1.030 7 Urine Blood SMALL Negative 7 Urine PH 8.0 High 6.5-7.5 7 Urine Protein - Dipstick NEGATIVE mg/dL Negative 7 Urine Urobilinogen - Dipstick 0.2 E.U./dL 0.2-1.0 7 Urine Nitrite - Dipstick NEGATIVE Negative 7 Urine Leuk Esterase NEGATIVE Negative 7 Urine RBC 2-5 rbc/hpf 0-2 7 Urine WBC NONE SEEN wbc/hpf 0-7 7 Urine Epithelial Cells MODERATE /lpf None Seen 7, 9 Urine Bacteria FEW None Seen 7 Urine Amorph Sediment MODERATE Negative 7 Source: URINE, CLEAN CAT <SEE 7, 10 NOTE> 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) 11, 12 Detection detection Director Review (SEE NOTE) 11, 13 Background (SEE NOTE) 11, 14 Iron-Tibc-%Sat 01/08/2017 Serum Iron 68 g/dL 50-170 15 Total Iron Binding Capacity 394 g/dL 250-450 15 Transferrin %Saturation 17 % 12-57 15 Laboratory test finding 01/08/2017 Ferritin 9 ng/mL 8-252 15 Vitamin D,25-Hydroxy 37.4 ng/mL 30.0-100.0 15, 16 CBS W/Automated Diff 01/08/2017 White Blood Count 6.5 K/uL 3.1-10.7 15 Red Blood Count 4.41 M/uL 3.90-5.40 15 Hemoglobin 13.3 gm/dL 11.6-15.8 15 Hematocrit 40.6 % 36.0-46.1 15 Mean Cell Volume 92.1 fl 80.9-99.0 15 Mean Corpuscular HGB 30.2 pg 25.9-32.7 15 Mean Corpuscular HGB Conc 32.8 g/dL 30.8-34.3 15 Platelet Count 440 K/uL High 150-400 15 Red Cell Distri Width SD 45.6 fl 3-47 15 Red Cell Distri Width %CV 13.9 % 11.7-14.4 15 Mean Platelet Volume 9.4 fL 8.9-12.4 15 Neut% 51.3 % 40.4-72.8 15 Lymph % 38.0 % 20.0-42.0 15 [place] % 6.6 % 4.3-13.2 15 Eo% 3.2 % 0.0-6.6 15 Bas% 0.9 % 0.0-1.1 15 Neut# 3.31 K/uL 1.8-7.0 15 Lymph # 2.46 K/uL 1.0-4.0 15 [place] # 0.43 K/uL 0.3-0.9 15 Eos # 0.21 K/uL 0.0-0.5 15 Baso # 0.06 K/uL 0.0-0.1 15 Vitamin B12 And Folate 01/08/2017 Vitamin B12 1491 pg/mL High 193-986 15 Folic Acid 42.9 ng/mL High 3.1-17.5 15 Laboratory test finding 01/08/2017 Sedimentation Rate 33 mm/hr High 0-30 15, 17 Vitamin B12 And Folate 10/25/2016 Vitamin B12 3114 pg/mL High 193-986 15 Folic Acid 36.5 ng/mL High 3.1-17.5 15 Iron-Tibc-%Sat 10/25/2016 Serum Iron 83 g/dL 50-170 15 Total Iron Binding Capacity 375 g/dL 250-450 15 Transferrin %Saturation 22 % 12-57 15 Laboratory test finding 10/25/2016 Ferritin 33 ng/mL 8-252 15 Vitamin D,25-Hydroxy 45.0 ng/mL 30.0-100.0 15, 18 Slide Review (SEE NOTE) 15, 19 CBS W/Automated Diff 10/25/2016 White Blood Count 10.1 K/uL 3.1-10.7 15 Red Blood Count 4.61 M/uL 3.90-5.40 15 Hemoglobin 13.9 gm/dL 11.6-15.8 15 Hematocrit 42.5 % 36.0-46.1 15 Mean Cell Volume 92.2 fl 80.9-99.0 15 Mean Corpuscular HGB 30.2 pg 25.9-32.7 15 Mean Corpuscular HGB Conc 32.7 g/dL 30.8-34.3 15 Platelet Count 521 K/uL High 150-400 15 Red Cell Distri Width SD 46.6 fl 3-47 15 Red Cell Distri Width %CV 14.3 % 11.7-14.4 15 Mean Platelet Volume 8.9 fL 8.9-12.4 15 Neut% 62.6 % 40.4-72.8 15 Lymph % 27.9 % 20.0-42.0 15 [place] % 6.7 % 4.3-13.2 15 Eo% 1.9 % 0.0-6.6 15 Bas% 0.9 % 0.0-1.1 15 Neut# 6.30 K/uL 1.8-7.0 15 Lymph # 2.80 K/uL 1.0-4.0 15 [place] # 0.67 K/uL 0.3-0.9 15 Eos # 0.19 K/uL 0.0-0.5 15 Baso # 0.09 K/uL 0.0-0.1 15 Laboratory test finding 10/25/2016 Sedimentation Rate 13 mm/hr 0-30 15, 20 Immunoglobulins A/G/M, 10/03/2016 Immunoglobulin 733 mg/dL 700-1600 15 QN, Ser G,Quant,Serum Immunoglobulin A 165 mg/dL 87-352 15 Immunoglobulin M 127 mg/dL 26-217 15, 21 Laboratory test finding 10/03/2016 Sedimentation Rate 12 mm/hr 0-30 15, 22 LDH 172 U/L 84-246 15 Ixdq-0-Bsuqlpveodngz,Serum 2.1 mg/L 0.6-2.4 15 Comprehensive Metabolic Panel 10/03/2016 Glucose 52 mg/dL Low 74-106 15 BUN 11 mg/dL 7-18 15 Creatinine 0.9 mg/dL 0.6-1.3 15 Glom Filtration Rate, Estimate >60 mL/min >60 15 If >60 mL/min >60 15, 23 BUN/Creat 12.2 ratio 15 Sodium 145 mmol/L 136-145 15 Potassium 4.1 mmol/L 3.5-5.1 15 Chloride 107 mmol/L 98-107 15 Carbon Dioxide 31 mmol/L 21-32 15 Anion Gap 7 mEq/L Low 8-16 15 Calcium 9.4 mg/dL 8.5-10.1 15 Total Protein 7.4 g/dL 6.4-8.2 15 Albumin 3.7 g/dL 3.4-5.0 15 Globulin 3.7 g/dL 1.9-4.3 15 Alb/Glob 1.0 ratio 15 Bilirubin,Total 0.4 mg/dL 0.2-1.0 15 Sgot/Ast 28 U/L 15-37 15 SGPT/Alt 31 U/L 12-78 15 Alkaline Phosphatase 82 U/L 45-117 15 Laboratory test finding 10/03/2016 Gamma Glutamyl 27 U/L 5-85 15 Transpeptidase Xray 04/10/2016 CT Abdomen & Pelvis <pending& W Contrast gt; Immunoglobulins A/G/M, 04/01/2016 Immunoglobulin 916 mg/dL 700-1600 15 QN, Ser G,Quant,Serum Immunoglobulin A 213 mg/dL 87-352 15 Immunoglobulin M 168 mg/dL 26-217 15, 24 Laboratory test finding 04/01/2016 Sedimentation Rate 9 mm/hr 0-30 15 LDH 04/01/2016 LDH 194 U/L 84-246 15 Is Patient Fasting? <Blank> 15 Laboratory test finding 04/01/2016 Dgxm-8-Yhekrbuuiaszw,Serum 2.1 mg/L 0.6-2.4 15 Comprehensive Metabolic 04/01/2016 Glucose 44 mg/dL Low 74-106 15 Panel BUN 14 mg/dL 7-18 15 Creatinine 1.0 mg/dL 0.6-1.3 15 Glom Filtration Rate, Estimate 58 mL/min >60 15 If >60 mL/min >60 15, 25 BUN/Creat 14.0 ratio 15 Sodium 142 mmol/L 136-145 15 Potassium 3.6 mmol/L 3.5-5.1 15 Chloride 103 mmol/L 98-107 15 Carbon Dioxide 28 mmol/L 21-32 15 Anion Gap 11 mEq/L 8-16 15 Calcium 9.2 mg/dL 8.5-10.1 15 Total Protein 7.7 g/dL 6.4-8.2 15 Albumin 3.9 g/dL 3.4-5.0 15 Globulin 3.8 g/dL 1.9-4.3 15 Alb/Glob 1.0 ratio 15 Bilirubin,Total 0.6 mg/dL 0.2-1.0 15 Sgot/Ast 30 U/L 15-37 15 SGPT/Alt 39 U/L 12-78 15 Alkaline Phosphatase 75 U/L 45-117 15 Is Patient Fasting? <Blank> 15 Gamma Glutamyl Transpeptidase 04/01/2016 Gamma Glutamyl 59 U/L 5-85 15 Transpeptidase Is Patient Fasting? <Blank> 15 Urinalysis With Microscopic 04/01/2016 Urine Color YELLOW Yellow 15 Urine Clarity CLEAR Clear 15 Urine Glucose - Dipstick NEGATIVE mg/dL Negative 15 Urine Bilirubin - Dipstick NEGATIVE Negative 15 Urine Ketone NEGATIVE mg/dL Negative 15 Urine Specific [place] 1.020 1.010-1.030 15 Urine Blood MODERATE Negative 15 Urine PH 6.0 Low 6.5-7.5 15 Urine Protein - Dipstick NEGATIVE mg/dL Negative 15 Urine Urobilinogen - Dipstick 0.2 E.U./dL 0.2-1.0 15 Urine Nitrite - Dipstick NEGATIVE Negative 15 Urine Leuk Esterase TRACE Negative 15 Urine RBC 2-5 rbc/hpf 0-2 15 Urine WBC 2-5 wbc/hpf 0-7 15 Urine Epithelial Cells FEW /lpf None Seen 15 Urine Mucus SMALL None Seen 15 Source: <Blank> 15 Jak2 V617F Mutation 03/26/2016 Jak2 V617F mutation (SEE NOTE) 15, 26 Detection detection Director Review (SEE NOTE) 15, 27 Background (SEE NOTE) 15, 28 CBC W/Automated Diff 01/08/2016 White Blood Count 8.1 K/uL 3.1-10.7 Red Blood Count 4.59 M/uL 3.90-5.40 Hemoglobin 13.6 gm/dL 11.6-15.8 Hematocrit 42.1 % 36.0-46.1 Mean Cell Volume 91.7 fl 80.9-99.0 Mean Corpuscular HGB 29.6 pg 25.9-32.7 Mean Corpuscular HGB Conc 32.3 g/dL 30.8-34.3 Platelet Count 415 K/uL High 155-360 Red Cell Distri Width SD 47.6 fl High 3-47 Red Cell Distri Width %CV 14.7 % High 11.7-14.4 Mean Platelet Volume 9.0 fL 8.9-12.4 Neut% 54.7 % 40.4-72.8 Lymph % 34.3 % 17.0-46.1 [place] % 7.3 % 4.3-13.2 Eo% 2.7 % 0.0-6.6 Bas% 1.0 % 0.0-1.1 Neut# 4.44 K/uL 1.8-7.0 Lymph # 2.78 K/uL 1.8-7.0 [place] # 0.59 K/uL 0.3-0.9 Eos # 0.22 K/uL 0.0-0.5 Baso # 0.08 K/uL 0.0-0.1 Laboratory test finding 01/08/2016 C-Reactive Protein,Cardiac 3.04 mg/L & lt;3.0 Sedimentation Rate 18 mm/hr 0-30 Iron-Tibc-%Sat 01/08/2016 Serum Iron 67 g/dL 50-170 Total Iron Binding Capacity 374 g/dL 250-450 Transferrin %Saturation 18 % 12-57 Laboratory test finding 01/08/2016 Ferritin 42 ng/mL 8-252 Vitamin B12 And Folate 01/08/2016 Vitamin B12 764 pg/mL 193-986 Folic Acid 63.4 ng/mL High 3.1-17.5 Laboratory test finding 01/08/2016 Vitamin D,25-Hydroxy 41.7 ng/mL 30.0- 100.0 29 LDH 204 U/L 84-246 Uric Acid 6.1 mg/dL High 2.6-6.0 Type And Screen 01/04/2016 Patient Blood Type O POS Antibody Screen Negative Negative Laboratory test finding 11/22/2015 Alanine Aminotransferase (Alt/SGPT) 51 12-78 Albumin 3.7 3.4-5.0 Albumin/Globulin Ratio 0.9 Alkaline Phosphatase 85 45-117 Anion Gap 9 8-16 Aspartate Amino Transf (Ast/Sgot) 37 15-37 BUN/Creatinine Ratio 10.0 Basophils # (Auto) 0.03 0.0-0.1 Basophils (%) (Auto) 0.4 0.0-1.1 Blood Urea Nitrogen 11 7-18 Calcium Level 8.9 8.5-10.1 Carbon Dioxide Level 26 21-32 Chloride Level 105 98-107 Creatinine 1.1 0.6-1.3 Eosinophils # (Auto) 0.33 0.0-0.5 Eosinophils (%) (Auto) 4.2 0.0-6.6 Estimated GFR (Non- 52 >60 Globulin 4.2 1.9-4.3 Glucose Screen 128 High 74-106 Hematocrit 44.1 36.0-46.1 Hemoglobin 14.6 11.6-15.8 Lymphocytes # (Auto) 2.80 1.8-7.0 Lymphocytes (%) (Auto) 35.7 17.0-46.1 Mean Corpuscular Hemoglobin 30.4 25.9-32.7 Mean Corpuscular Hemoglobin Concent 33.1 30.8-34.3 Mean Corpuscular Volume 91.7 80.9-99.0 Mean Platelet Volume 8.4 Low 8.9-12.4 Monocytes # (Auto) 0.52 0.3-0.9 Monocytes (%) (Auto) 6.6 4.3-13.2 Neutrophils # (Auto) 4.16 1.8-7.0 Neutrophils (%) (Auto) 53.1 40.4-72.8 Platelet Count 393 High 155-360 Potassium Level 3.8 3.5-5.1 RDW Coefficient of Variation 14.2 11.7-14.4 Red Blood Count 4.81 3.90-5.40 Red Cell Distribution Width 46.8 3-47 Sodium Level 140 136-145 Total Bilirubin 0.2 0.2-1.0 Total Creatine Kinase 102 26-192 Total Protein 7.9 6.4-8.2 White Blood Count 7.8 3.1-10.7 Laboratory test finding 10/16/2015 Urine Bilirubin Negative Negative Urine Blood Moderate High Negative Urine Clarity Clear Clear Urine Color Yellow Yellow Urine Culture No Growth: Final Report Urine Epithelial Cells Few None Seen Urine Glucose (Ua) Negative Negative Urine Ketones Negative Negative Urine Leukocyte Esterase Small High Negative Urine Mucus Small None Seen Urine Nitrite Negative Negative Urine Protein Negative Negative Urine Specific [place] 1.010 1.010-1.030 Urine Urobilinogen 0.2 0.2-1.0 Urine pH 6.0 Low 6.5-7.5 1 R31.9 2 10,000 - 50,000 CFU/mL 3 Z02.9 4 Note: Persistent reduction for 3 months or more in an eGFR <60 mL/min/1.73 m2 defines CKD. Patients with eGFR values >/=60 mL/min/1.73 m2 may also have CKD if evidence of persistent proteinuria is present. The original MDRD equation for estimated GFR is not valid for patients less than 18 years of age. Additional information may be found at www.kdoqi.org. 5 Vitamin D deficiency has been defined by the [place] [employer] and an Endocrine Society practice guideline as a level of serum 25-OH vitamin D less than 20 ng/mL (1,2). The Endocrine Society went on to further define vitamin D insufficiency as a level between 21 and 29 ng/mL (2). 1. IOM ([place] of [employer]). 2010. Dietary reference intakes for calcium and D. [place]: The National Academies Press. 2. Nan MF, Nupur HAIDER, Abby ASCENCIO, et al. Evaluation, treatment, and prevention of vitamin D deficiency: an Endocrine Society clinical practice guideline. JCEM. 2010; 96(7):1911-30. Performed at: RN - [facility] [address] [id number] Tool Polisher: Abigail Rivera MD, Phone: [phone] Method: Sediplast Modified [place] 7 R31.21 8 > 100,000 CFU/mL 9 POSSIBLE UROGENITAL CONTAMINATION. 10 URINE, CLEAN CATCH 11 D47.3 N85.00 R31.9 12 Result: NEGATIVE for the JAK2 V617F mutation. Interpretation: The G to T nucleotide change encoding the V617F mutation was not detected. This result does not rule out the presence of the JAK2 mutation at a level below the sensitivity of detection of this assay, or the presence of other mutations within JAK2 not detected by this assay. This result does not rule out a diagnosis of polycythemia vera, essential thrombocythemia or idiopathic myelofibrosis as the V617F mutation is not detected in all patients with these disorders. 13 Dylon Cox MD, PhD Director, Molecular Oncology [facility] [place] [address] 14 JAK2 is a cytoplasmic tyrosine kinase with a spencer role in signal transduction from multiple hematopoietic growth factor receptors. A point mutation within exon 14 of the JAK2 gene ([id number]) encoding a valine to phenylalanine substitution at position 617 of the JAK2 protein (V617F) has been identified in most patients with polycythemia vera, and in about half of those with either essential thrombocythemia or idiopathic myelofibrosis. The V617F has also been detected, although infrequently, in other myeloid disorders such as chronic myelomonocytic leukemia and chronic neutrophilic leukemia. V617F is an acquired mutation that alters a highly conserved valine present in the negative regulatory JH2 domain of the JAK2 protein and is predicted to dysregulate kinase activity. Methodology: Genomic DNA was purified from the provided specimen. Allele-specific PCR using fluorescent primers was used to simultaneously amplify both the wild type and mutant alleles. Amplification products were analyzed by capillary electrophoresis. This assay has a sensitivity to detect approximately a 5% population of cells containing the V617F mutation in a background of non-mutant cells. Reference: Franklin A and Elizabeth DOSHI. The JAK2 V617F Tyrosine Kinase Mutation in Myeloproliferative Disorders: Status Report and Immediate Implications for Disease Classification and Diagnosis. [facility] Clin Proc 2005;80(7):947-958. Performed at: [facility] [address] [place] [address], [facility], [place] [id number] Tool Polisher: Carol Jones MD, Phone: [phone] Performed at: [facility] [address] [place], [place] [id number] Tool Polisher: Carol Jones MD, Phone: [phone] 15 D47.3 16 Vitamin D deficiency has been defined by the [place] [employer] and an Endocrine Society practice guideline as a level of serum 25-OH vitamin D less than 20 ng/mL (1,2). The Endocrine Society went on to further define vitamin D insufficiency as a level between 21 and 29 ng/mL (2). 1. IOM ([place] [employer]). 2010. Dietary reference intakes for calcium and D. [place]: The National Academies Press. 2. Nupur Israel, Abby ASCENCIO, et al. Evaluation, treatment, and prevention of vitamin D deficiency: an Endocrine Society clinical practice guideline. JCEM. 2010; 96(7):1911-30. Performed at: [address] [id number] Tool Polisher: Abigail Rivera MD, Phone: [phone] 17 Method: Sediplast Modified Westergren 18 Vitamin D deficiency has been defined by the [place] [employer] and an Endocrine Society practice guideline as a level of serum 25-OH vitamin D less than 20 ng/mL (1,2). The Endocrine Society went on to further define vitamin D insufficiency as a level between 21 and 29 ng/mL (2). 1. IOM ([place] [employer]). 2010. Dietary reference intakes for calcium and D. [place]: The National Academies Press. 2. Nupur Israel, Abby ASCENCIO, et al. Evaluation, treatment, and prevention of vitamin D deficiency: an Endocrine Society clinical practice guideline. JCEM. 2010; 96(7):1911-30. Performed at: [address] [id number] Tool Polisher: Abigail Rivera MD, Phone: [phone] 19 Instrument flagged sample for slide review. Less than 10% Bands seen, no other immature WBC's seen. RBC morphology essentially normal. Platelet estimate=MODERATE INCREASE 20 Method: Sediplast Modified Westergren 21 Performed at: [address] [id number] Tool Polisher: Abigail Rivera MD, Phone: [phone] 22 Method: Sediplast Modified Westergren 23 Note: Persistent reduction for 3 months or more in an eGFR <60 mL/min/1.73 m2 defines CKD. Patients with eGFR values >/=60 mL/min/1.73 m2 may also have CKD if evidence of persistent proteinuria is present. The original MDRD equation for estimated GFR is not valid for patients less than 18 years of age. Additional information may be found at www.[email or web address]. 24 Performed at: [address] [id number] Tool Polisher: Abigail Rivera MD, Phone: [phone] 25 Note: Persistent reduction for 3 months or more in an eGFR <60 mL/min/1.73 m2 defines CKD. Patients with eGFR values >/=60 mL/min/1.73 m2 may also have CKD if evidence of persistent proteinuria is present. The original MDRD equation for estimated GFR is not valid for patients less than 18 years of age. Additional information may be found at www.[email or web address]. 26 Result: NEGATIVE for the JAK2 V617F mutation. Interpretation: The G to T nucleotide change encoding the V617F mutation was not detected. This result does not rule out the presence of the JAK2 mutation at a level below the sensitivity of detection of this assay, or the presence of other mutations within JAK2 not detected by this assay. This result does not rule out a diagnosis of polycythemia vera, essential thrombocythemia or idiopathic myelofibrosis as the V617F mutation is not detected in all patients with these disorders. 27 Boone Delgado MS, PhD, FACB [employer] [facility] [place], [place] 28 JAK2 is a cytoplasmic tyrosine kinase with a spencer role in signal transduction from multiple hematopoietic growth factor receptors. A point mutation within exon 14 of the JAK2 gene ([id number]) encoding a valine to phenylalanine substitution at position 617 of the JAK2 protein (V617F) has been identified in most patients with polycythemia vera, and in about half of those with either essential thrombocythemia or idiopathic myelofibrosis. The V617F has also been detected, although infrequently, in other myeloid disorders such as chronic myelomonocytic leukemia and chronic neutrophilic leukemia. V617F is an acquired mutation that alters a highly conserved valine present in the negative regulatory JH2 domain of the JAK2 protein and is predicted to dysregulate kinase activity. Methodology: Genomic DNA was purified from the provided specimen. Allele-specific PCR using fluorescent primers was used to simultaneously amplify both the wild type and mutant alleles. Amplification products were analyzed by capillary electrophoresis. This assay has a sensitivity to detect approximately a 5% population of cells containing the V617F mutation in a background of non-mutant cells. Reference: Franklin A and Elizabeth DOSHI. The JAK2 V617F Tyrosine Kinase Mutation in Myeloproliferative Disorders: Status Report and Immediate Implications for Disease Classification and Diagnosis. [facility]ola Clin Proc 2005;80(7):947-958. Performed at: [facility] [address] [place], [place] [id number] Tool Polisher: Carol Jones MD, Phone: [phone] Performed at: [facility] [address] [place], [place] [id number] Tool Polisher: Carol Jones MD, Phone: [phone] 29 Vitamin D deficiency has been defined by the [place] of Medicine and an Endocrine Society practice guideline as a level of serum 25-OH vitamin D less than 20 ng/mL (1,2). The Endocrine Society went on to further define vitamin D insufficiency as a level between 21 and 29 ng/mL (2). 1. IOM ([place] of Medicine). 2010. Dietary reference intakes for calcium and D. [place]: The National Academies Press. 2. Nan MF, Nupur [place], Abby ASCENCIO, et al. Evaluation, treatment, and prevention of vitamin D deficiency: an Endocrine Society clinical practice guideline. JCEM. 2010; 96(7):1911-30. Performed at: [facility] [id number] Tool Polisher: Abigail Rivera MD, Phone: [phone] Procedures Date CPT Code Description Status 04/07/2016 63161 Aspiration/Injection joint Completed intermediate(wrist/ankle/elbow/olbursa 03/13/2010 76397 EKG Interpretation And Report Only Completed Encounters Type Date Location Provider CPT E/M Dx Office Visit 10/20/2017 10:15a Urology Francis Middleton M.D. 88564 R31.9 Office Visit 07/18/2017 9:00a [place] [address] D47.3 R31.9 F32.89 Office Visit 04/22/2017 11:00a Urology Francis Middleton M.D. 51346 R31.9 Office Visit 01/15/2017 9:00a [place] [address] D47.3 R31.9 N85.00 F32.89 Office Visit 11/19/2016 8:30a [place] [address] D47.3 R31.9 N85.00 F32.89 Office Visit 10/25/2016 10:00a [place] [address] D47.3 R10.30 J01.90 R93.8 R31.9 Office Visit 04/17/2016 10:30a [place] [address] D47.3 R19.4 Office Visit 04/07/2016 10:47a [place] [address] M79.641 M79.641 Office Visit 04/01/2016 9:00a [place] [address] D47.3 R19.4 Office Visit 2016 3:00p [place] [address] D47.3 Office Visit 01/08/2016 1:00p [place] [address] D47.3 Office Visit 11/23/2015 12:29p [place] [address] R07.9 Plan of Care Future Appointment(s):04/23/2018 10:30 am - Francis Middleton M.D. at [id number]/09 9:30 am - Antionette Will DO at Oncology [id number]/20/2017 - Francis Middleton M.D.R31.9 Hematuria, unspecifiedComments:Patient with a history of microscopic hematuria. I will obtain a CT scan with IV contrast given thesetting of abdominal pain and dysuria. I will check her urine for UTI.
[2017-11-05 13:24] VITALS: BP 94/63
--- NOTE | 2017-11-05 13:52 | UC ---
Skin Complaint HPI - HPI Summary HPI Summary: pt c/o rash on her R abdomen. she first noticed it last pm. today, it is worse. there were only 2 spots at the onset but not has 4 that are increasing in size. they are painful as well. - History of Current Complaint Chief Complaint: UCSkin Time Seen by Provider: 11/05/17 13:45 Stated Complaint: RASH ON BELLY Hx Obtained From: Patient Hx Last Menstrual Period: n/a Onset/Duration: Gradual Onset Pain Intensity: 4 Aggravating Factor(s): Nothing Alleviating Factor(s): Nothing Associated Signs & Symptoms: Positive: Rash. Negative: Fever - Allergy/Home Medications Allergies/Adverse Reactions: Allergies Allergy/AdvReac Type Severity Reaction Status Date / Time codeine Allergy Anaphylatic Verified 11/05/17 13:15 Shock dicyclomine [From Bentyl] Allergy See Comment Verified 11/05/17 13:15 metronidazole [From Flagyl] Allergy Rash Verified 11/05/17 13:15 Penicillins Allergy Rash Verified 11/05/17 13:15 Rkvfgbq-Pqc-Ssp Reductase Allergy Shakes Verified 11/05/17 13:15 Inhibitor Sulfa (Sulfonamide Allergy Rash Verified 11/05/17 13:15 Antibiotics) tramadol Allergy Anxiety Verified 11/05/17 13:15 venlafaxine [From Effexor] Allergy Shakes Verified 11/05/17 13:15 Home Medications: Home Medications Cholestyramine/Aspartame [Prevalite] 4 gm PO DAILY 11/05/17 [History Confirmed 11/05/17] Conjugated Estrogens VAG CM* [Premarin VAG CREAM*] 0.5 applic VAGINAL .SEE DIRECTIONS 11/05/17 [History Confirmed 11/05/17] Review of Systems Constitutional: Negative Skin: Rash Eyes: Negative ENT: Negative Respiratory: Negative Cardiovascular: Negative Gastrointestinal: Negative Genitourinary: Negative Motor: Negative Neurovascular: Negative Musculoskeletal: Negative Neurological: Negative Psychological: Negative Is Patient Immunocompromised?: No All Other Systems Reviewed And Are Negative: Yes PMH/Surg Hx/FS Hx/Imm Hx - Additional Past Medical History Additional PMH: idiopathic pancreatitis Psychological History: Depression - Surgical History Surgical History: Yes Surgery Procedure, Year, and Place: [place]. D&C. laparoscopy--1980, 1987, 2012. cardiac catheterization. Fx ankle 1979. B/L SALPINGECTOMY--12/2015. B/ L OOPHERECTOMY--12/2015 - Family History Known Family History: Positive: Hypertension - Social History Occupation: Retired Lives: With Family Alcohol Use: None Substance Use Type: None Smoking Status (MU): Never Smoked Tobacco - Immunization History Most Recent Influenza Vaccination: Fall 2014 Most Recent Tetanus Shot: 2007 Vaccination Up to Date: Yes Physical Exam Triage Information Reviewed: Yes Appearance: Well-Appearing Vital Signs: Initial Vital Signs Temp 98.1 F 11/05/17 13:20 Pulse 78 11/05/17 13:20 Resp 18 11/05/17 13:20 BP 94/63 11/05/17 13:20 Pulse Ox 100 11/05/17 13:20 Vital Signs Reviewed: Yes Eyes: Positive: Conjunctiva Clear ENT: Positive: Normal ENT inspection Neck: Positive: Supple, Nontender Respiratory: Positive: Lungs clear, Normal breath sounds Cardiovascular: Positive: RRR, No Murmur Abdomen Description: Positive: Nontender, No Organomegaly, Soft, Other: - post op scar Bowel Sounds: Positive: Present Musculoskeletal: Positive: ROM Intact Neurological: Positive: Alert Psychological: Positive: Age Appropriate Behavior Skin: Positive: rashes - single vesicular cluster R side of abdomen on red base. Course/Dx - Course Course Of Treatment: hx chicken pox. rash is c/w a shingle cluster. will tx with Famvir - Diagnoses Provider Diagnoses: Shingle R abdomen Discharge - Sign-Out/Discharge Documenting (check all that apply): Discharge/Admit/Transfer - Discharge Plan Condition: Stable Disposition: HOME Prescriptions: Famciclovir(NF) [Famvir(NF)] 500 mg PO TID 7 Days #21 tab Patient Education Materials: Shingles (ED) Referrals: Derrell Gandara MD [Primary Care Provider] - 7 Days - Billing Disposition and Condition Condition: STABLE Disposition: HOME
== END 2017-11-05 14:07 | disposition home or self-care (01) ==
LOC: UCCORT 12:25
DX: B02.9 Zoster without complications (principal); Z88.5 Allergy status to narcotic agent; Z88.1 Allergy status to other antibiotic agents; Z88.2 Allergy status to sulfonamides; Z88.6 Allergy status to analgesic agent; Z88.0 Allergy status to penicillin
CPT/HCPCS: 99212; G0463

== ENCOUNTER 2018-04-20 13:25 | Emergency (ER) | payer MEDICARE ==
--- OUTSIDE RECORDS SUMMARY | 2018-04-20 13:38 | XMS REPORT ---
:1945 External Reference #:[id number] Author Organization [facility] Address [address], [address] [place] [address] Phone [phone] Care Team Providers Name Role Phone Derrell Gandara MD Care Team Information Or First Assist Registered Nurse Unavailable Derrell Gandara MD Primary Care Physician Unavailable Payers Type Date Identification Numbers Payment Provider Subscriber Medicare Primary Effective: Policy Number: Medicare Josiane Shafer 2018 [id number] PayID: [id number] [address] [place] [address] Medicare Primary Expires: 2018 Policy Number: [id number] Medicare Josiane Shafer PayID: [id number] [address] [place] [address] [facility] Policy Number: [id number] [facility] Josiane Shafer PayID: [id number] [address] [place] [address] Problems Date Description Provider Status Onset: 01/08/2016 Hyperlipidemia Antionette Will DO Active Onset: 12/09/2017 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 Onset: 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/2017 Depressive disorder Antionette Will DO [...] 01/07 Active Capsules 30cap 1 by mouth s every day DO Antionette Levothyroxine Active Tablets 50mcg 1 by mouth Unknown Sodium /0000 every day [place] [id number] take 1 Unknown /0000 Part capsule by mouth three times a day before meals Zetia Active Tablets 10mg 1 by mouth Unknown /0000 every day Vitamin D3 Active Tablets 1 by mouth Unknown Complete /0000 every day Potassium Active Tablets 99mg 1 by mouth Unknown /0000 every day Pantoprazole Active Tablets DR 40mg 1 by mouth Unknown Sodium /0000 every day Flovent HFA Active Aerosol 2 puff twice Unknown /0000 a day Calcium Active Tablets 600mg 1 tab every Unknown /0000 day Colon Health Active 1 po qday Unknown /0000 Magnesium Active Capsules 500mg take 1 tab Unknown /0000 by mouth every daily Miralax Active Packet 17g by mouth Unknown /0000 qday Lipitor Active Tablets 10mg 1 by mouth Unknown /0000 Twice A Week Proair HFA 00 Active Aerosol 108(90Bas 2 Unknown /0000 e) inhalations mcg/Act every 4 hours as needed Premarin 00 Active Cream 0.625mg/G apply pea Unknown /0000 M size amount to vaginal opening at bedtime twice a week Azelastine HCL Active Solution 0.15% [place] 1 2 Unknown (Nasal) /0000 Sprays In Each Nostril Daily Prevalite Active Packet 4gm 1 packet Unknown /0000 once a day diluted in 8oz of water Levaquin 10/25 Hx Tablets 500mg 7tabs 1 tabl by Javon, mouth every Antionette, - day DO 11/19 Miralax 01/07 Hx Powder 3350NF 510gm 1 tablespoon , in 8 ounces Antionette, - of water DO 01/08 twice a day Nasonex Hx Suspension 50mcg/Act 2 sprays Unknown /0000 each nostril - every day 12/09 Ventolin HFA Hx Aerosol 108(90Bas 1-2 puffs Unknown /0000 e) every 4-6 mcg/Act hours as needed Citalopram Hx Tablets 20mg 1 by mouth Unknown Hydrobromide /0000 every day Desloratadine Hx Tablets 5mg 1 tab by Unknown /0000 mouth every - day as 11/19 congestion Metamucil Hx Unknown Wafers /0000 - 01/23 Vitamin B 00/ Hx Tablets 90tab 1 by mouth Unknown Complex /0000 s every day - 10/20 Lotrisone Hx Cream 1-0.05% apply to Unknown /0000 affected - areas twice 11/19 daily for to 2 weeks Azelastine HCL Hx Solution 0.15% Florence 1 2 Unknown (Nasal) /0000 Sprays In Each Nostril Daily Ibguard 00/ Hx 6 caps po Unknown /0000 qday - 12/09 Medications Administered in Office Medication Date Status Form Strength Qnty SIG Indications Ordering Provider Vitamin B12 Administered Injection Boufal, Injection 1000 018 Antionette, mcg/Ml DO Theraputic Or Administered Injection Boufal, Diagnostic 018 Antionette, Injection DO Vital Signs Date Vital Result Comment 03/20/2018 BP Systolic 138 mmHg BP Diastolic 85 mmHg Body Temperature 96.9 F Heart Rate 72 /min Weight 145.25 lb O2 % BldC Oximetry 99 % Pain Level 3 all over 01/30/2018 BP Systolic 113 mmHg BP Diastolic 74 mmHg Body Temperature 97.1 F Heart Rate 75 /min Respiratory Rate 18 /min Weight 156.25 lb O2 % BldC Oximetry 97 % Pain Level 3 Ruq 12/31/2017 BP Systolic 103 mmHg BP Diastolic 69 mmHg Body Temperature 97.7 F Heart Rate 70 /min Weight 150.12 lb O2 % BldC Oximetry 97 % Pain Level 3 Due to shingles under Right Arm 12/09/2017 BP Systolic 142 mmHg BP Diastolic 90 mmHg Body Temperature 96.8 F Heart Rate 88 /min Respiratory Rate 16 /min Weight 150.50 lb O2 % BldC Oximetry 99 % 10/20/2017 BP Systolic 104 mmHg BP Diastolic 58 mmHg Body Temperature 98.1 F Heart Rate 80 /min Respiratory Rate 16 /min Weight 150.38 lb BSA (Body Surface Area) 1.73 m2 [place] body weight in kilograms 54 O2 % [...] kg/m2 BSA (Body Surface Area) 1.79 m2 [place] body weight in kilograms 57 O2 % [...] kg/m2 BSA (Body Surface Area) 1.80 m2 [place] body weight in kilograms 58 O2 % BldC Oximetry 97 % Results Test Date Test Result H/L Range Note Ua RFX Micro & Culture II 01/30/2018 Urine Color STRAW Yellow 1 Urine Clarity CLEAR Clear 1 Urine Glucose - Dipstick NEGATIVE mg/dL Negative 1 Urine Bilirubin - Dipstick NEGATIVE Negative 1 Urine Ketone NEGATIVE mg/dL Negative 1 Urine Specific [place] <=1.005 Low 1.010-1.030 1 Urine Blood TRACE Negative 1 Urine PH 6.0 Low 6.5-7.5 1 Urine Protein - Dipstick NEGATIVE mg/dL Negative 1 Urine Urobilinogen - Dipstick 0.2 E.U./dL 0.2-1.0 1 Urine Nitrite - Dipstick NEGATIVE Negative 1 Urine Leuk Esterase NEGATIVE Negative 1 Urine Culture 01/30/2018 Urine Culture URETHRAL JENNY 1 Quantity 10,000 - 100,000 <SEE NOTE> 1, 2 CBS W/Automated Diff 01/23/2018 White Blood Count 5.1 K/uL 3.1-10.7 3 Red Blood Count 4.35 M/uL 3.90-5.40 3 Hemoglobin 12.9 gm/dL 11.6-15.8 3 Hematocrit 39.7 % 36.0-46.1 3 Mean Cell Volume 91.3 fl 80.9-99.0 3 Mean Corpuscular HGB 29.7 pg 25.9-32.7 3 Mean Corpuscular HGB Conc 32.5 g/dL 30.8-34.3 3 Platelet Count 422 K/uL High 155-360 3 Red Cell Distri Width SD 49.4 fl High 3-47 3 Red Cell Distri Width %CV 15.3 % High 11.7-14.4 3 Mean Platelet Volume 9.2 fL 8.9-12.4 3 Neut% 52.5 % 40.4-72.8 3 Lymph % 34.6 % 20.0-42.0 3 Grady % 8.1 % 4.3-13.2 3 Eo% 2.8 % 0.0-6.6 3 Bas% 2.0 % High 0.0-1.1 3 Neut# 2.68 K/uL 1.8-7.0 3 Lymph # 1.76 K/uL 1.0-4.0 3 Grady # 0.41 K/uL 0.3-0.9 3 Eos # 0.14 K/uL 0.0-0.5 3 Baso # 0.10 K/uL 0.0-0.1 3 Laboratory test finding 01/23/2018 Sedimentation Rate 28 mm/hr 0-30 3, 4 Vitamin B12 And Folate 01/23/2018 Vitamin B12 506 pg/mL 193-986 3 Folic Acid > 20.0 ng/mL High 3.1-17.5 3 Iron-Tibc-%Sat 01/23/2018 Serum Iron 50 g/dL 50-170 3 Total Iron Binding Capacity 391 g/dL 250-450 3 Transferrin %Saturation 13 % 12-57 3 Laboratory test finding 01/23/2018 Ferritin 50 ng/mL 8-252 3 Vitamin D,25-Hydroxy 43.9 ng/mL 30.0-100.0 3, 5 Comprehensive Metabolic Panel 01/23/2018 Glucose 86 mg/dL 74-106 3 BUN 8 mg/dL 7-18 3 Creatinine 1.0 mg/dL 0.6-1.3 3 Glom Filtration Rate, Estimate 58 mL/min >60 3 If >60 mL/min >60 3, 6 BUN/Creat 8.0 ratio 3 Sodium 145 mmol/L 136-145 3 Potassium 4.4 mmol/L 3.5-5.1 3 Chloride 108 mmol/L High 98-107 3 Carbon Dioxide 26 mmol/L 21-32 3 Anion Gap 11 mEq/L 8-16 3 Calcium 9.2 mg/dL 8.5-10.1 3 Total Protein 7.6 g/dL 6.4-8.2 3 Albumin 3.7 g/dL 3.4-5.0 3 Globulin 3.9 g/dL 1.9-4.3 3 Alb/Glob 0.9 ratio 3 Bilirubin,Total 0.5 mg/dL 0.2-1.0 3 Sgot/Ast 39 U/L High 15-37 3 SGPT/Alt 42 U/L 12-78 3 Alkaline Phosphatase 70 U/L 45-117 3 Immunoglobulins A/G/M, QN, 01/23/2018 Immunoglobulin 729 mg/dL 700-1600 3 Ser G,Quant,Serum Immunoglobulin A 180 mg/dL 87-352 3 Immunoglobulin M 137 mg/dL 26-217 3, 7 Xray 12/09/2017 Ultrasound, Venous <pending> Doppler Arm/Leg Unilateral Limited Immunoglobulins A/G/M, QN, 12/09/2017 Immunoglobulin 711 mg/dL 700-1600 8 Ser G,Quant,Serum Immunoglobulin A 171 mg/dL 87-352 8 Immunoglobulin M 134 mg/dL 26-217 8, 9 Comprehensive Metabolic Panel 12/09/2017 Glucose 73 mg/dL Low 74-106 8 BUN 9 mg/dL 7-18 8 Creatinine 0.9 mg/dL 0.6-1.3 8 Glom Filtration Rate, Estimate >60 mL/min >60 8 If >60 mL/min >60 8, 10 BUN/Creat 10.0 ratio 8 Sodium 142 mmol/L 136-145 8 Potassium 3.9 mmol/L 3.5-5.1 8 Chloride 107 mmol/L 98-107 8 Carbon Dioxide 29 mmol/L 21-32 8 Anion Gap 6 mEq/L Low 8-16 8 Calcium 8.8 mg/dL 8.5-10.1 8 Total Protein 7.4 g/dL 6.4-8.2 8 Albumin 3.6 g/dL 3.4-5.0 8 Globulin 3.8 g/dL 1.9-4.3 8 Alb/Glob 0.9 ratio 8 Bilirubin,Total 0.3 mg/dL 0.2-1.0 8 Sgot/Ast 38 U/L High 15-37 8 SGPT/Alt 39 U/L 12-78 8 Alkaline Phosphatase 67 U/L 45-117 8 Laboratory test finding 12/09/2017 Ferritin 7 ng/mL Low 8-252 8 Vitamin D,25-Hydroxy 39.3 ng/mL 30.0-100.0 8, 11 Iron-Tibc-%Sat 12/09/2017 Serum Iron 56 g/dL 50-170 8 Total Iron Binding Capacity 423 g/dL 250-450 8 Transferrin %Saturation 13 % 12-57 8 Vitamin B12 And Folate 12/09/2017 Vitamin B12 486 pg/mL 193-986 8 Folic Acid > 20.0 ng/mL High 3.1-17.5 8 Laboratory test finding 12/09/2017 Sedimentation Rate 32 mm/hr High 0-30 8, 12 CBS W/Automated Diff 12/09/2017 White Blood Count 6.8 K/uL 3.1-10.7 8 Red Blood Count 4.15 M/uL 3.90-5.40 8 Hemoglobin 12.3 gm/dL 11.6-15.8 8 Hematocrit 38.0 % 36.0-46.1 8 Mean Cell Volume 91.6 fl 80.9-99.0 8 Mean Corpuscular HGB 29.6 pg 25.9-32.7 8 Mean Corpuscular HGB Conc 32.4 g/dL 30.8-34.3 8 Platelet Count 470 K/uL High 155-360 8 Red Cell Distri Width SD 50.1 fl High 3-47 8 Red Cell Distri Width %CV 15.2 % High 11.7-14.4 8 Mean Platelet Volume 8.8 fL Low 8.9-12.4 8 Neut% 50.4 % 40.4-72.8 8 Lymph % 38.4 % 20.0-42.0 8 Grady % 7.5 % 4.3-13.2 8 Eo% 2.5 % 0.0-6.6 8 Bas% 1.2 % High 0.0-1.1 8 Neut# 3.44 K/uL 1.8-7.0 8 Lymph # 2.62 K/uL 1.0-4.0 8 Grady # 0.51 K/uL 0.3-0.9 8 Eos # 0.17 K/uL 0.0-0.5 8 Baso # 0.08 K/uL 0.0-0.1 8 Ua RFX Micro & Culture II 10/20/2017 Urine Color YELLOW Yellow 13 Urine Clarity CLEAR Clear 13 Urine Glucose - Dipstick NEGATIVE mg/dL Negative 13 Urine Bilirubin - Dipstick NEGATIVE Negative 13 Urine Ketone NEGATIVE mg/dL Negative 13 Urine Specific [place] 1.010 1.010-1.030 13 Urine Blood SMALL Negative 13 Urine PH 6.5 6.5-7.5 13 Urine Protein - Dipstick NEGATIVE mg/dL Negative 13 Urine Urobilinogen - Dipstick 0.2 E.U./dL 0.2-1.0 13 Urine Nitrite - Dipstick NEGATIVE Negative 13 Urine Leuk Esterase TRACE Negative 13 Urine RBC 0-2 rbc/hpf 0-2 13 Urine WBC 2-5 wbc/hpf 0-7 13 Urine Epithelial Cells MANY /lpf None Seen 13, 14 Urine Bacteria FEW None Seen 13 Source: URINE, CLEAN CAT <SEE NOTE> 13, 15 Comprehensive Metabolic Panel 10/20/2017 Glucose 79 mg/dL 74-106 13 BUN 8 mg/dL 7-18 13 Creatinine 1.0 mg/dL 0.6-1.3 13 Glom Filtration Rate, Estimate 58 mL/min >60 13 If >60 mL/min >60 13, 16 BUN/Creat 8.0 ratio 13 Sodium 141 mmol/L 136-145 13 Potassium 3.9 mmol/L 3.5-5.1 13 Chloride 108 mmol/L High 98-107 13 Carbon Dioxide 29 mmol/L 21-32 13 Anion Gap 4 mEq/L Low 8-16 13 Calcium 9.1 mg/dL 8.5-10.1 13 Total Protein 7.2 g/dL 6.4-8.2 13 Albumin 3.6 g/dL 3.4-5.0 13 Globulin 3.6 g/dL 1.9-4.3 13 Alb/Glob 1.0 ratio 13 Bilirubin,Total 0.4 mg/dL 0.2-1.0 13 Sgot/Ast 25 U/L 15-37 13 SGPT/Alt 18 U/L 12-78 13 Alkaline Phosphatase 71 U/L 45-117 13 CBS W/Automated Diff 10/20/2017 White Blood Count 6.4 K/uL 3.1-10.7 13 Red Blood Count 4.38 M/uL 3.90-5.40 13 Hemoglobin 12.7 gm/dL 11.6-15.8 13 Hematocrit 38.8 % 36.0-46.1 13 Mean Cell Volume 88.6 fl 80.9-99.0 13 Mean Corpuscular HGB 29.0 pg 25.9-32.7 13 Mean Corpuscular HGB Conc 32.7 g/dL 30.8-34.3 13 Platelet Count 447 K/uL High 155-360 13 Red Cell Distri Width SD 47.4 fl High 3-47 13 Red Cell Distri Width %CV 15.1 % High 11.7-14.4 13 Mean Platelet Volume 9.4 fL 8.9-12.4 13 Neut% 51.7 % 40.4-72.8 13 Lymph % 38.1 % 20.0-42.0 13 Grady % 6.7 % 4.3-13.2 13 Eo% 2.2 % 0.0-6.6 13 Bas% 1.3 % High 0.0-1.1 13 Neut# 3.31 K/uL 1.8-7.0 13 Lymph # 2.44 K/uL 1.0-4.0 13 Grady # 0.43 K/uL 0.3-0.9 13 Eos # 0.14 K/uL 0.0-0.5 13 Baso # 0.08 K/uL 0.0-0.1 13 Ua RFX Micro & Culture II 07/18/2017 Urine Color YELLOW Yellow 13 Urine Clarity CLEAR Clear 13 Urine Glucose - Dipstick NEGATIVE mg/dL Negative 13 Urine Bilirubin - Dipstick NEGATIVE Negative 13 Urine Ketone NEGATIVE mg/dL Negative 13 Urine Specific [place] <=1.005 Low 1.010-1.030 13 Urine Blood TRACE Negative 13 Urine PH 6.5 6.5-7.5 13 Urine Protein - Dipstick NEGATIVE mg/dL Negative 13 Urine Urobilinogen - Dipstick 0.2 E.U./dL 0.2-1.0 13 Urine Nitrite - Dipstick NEGATIVE Negative 13 Urine Leuk Esterase NEGATIVE Negative 13 Urine Culture 07/18/2017 Urine Culture URETHRAL JENNY 13 Quantity 10,000 - 50,000 <SEE NOTE> 13, 17 CBS W/Automated Diff 07/11/2017 White Blood Count 6.9 K/uL 3.1-10.7 18 Red Blood Count 4.67 M/uL 3.90-5.40 18 Hemoglobin 13.6 gm/dL 11.6-15.8 18 Hematocrit 42.0 % 36.0-46.1 18 Mean Cell Volume 89.9 fl 80.9-99.0 18 Mean Corpuscular HGB 29.1 pg 25.9-32.7 18 Mean Corpuscular HGB Conc 32.4 g/dL 30.8-34.3 18 Platelet Count 460 K/uL High 155-360 18 Red Cell Distri Width SD 44.0 fl 3-47 18 Red Cell Distri Width %CV 13.8 % 11.7-14.4 18 Mean Platelet Volume 8.9 fL 8.9-12.4 18 Neut% 54.2 % 40.4-72.8 18 Lymph % 28.6 % 20.0-42.0 18 Grady % 7.0 % 4.3-13.2 18 Eo% 8.0 % High 0.0-6.6 18 Bas% 2.2 % High 0.0-1.1 18 Neut# 3.73 K/uL 1.8-7.0 18 Lymph # 1.97 K/uL 1.0-4.0 18 Grady # 0.48 K/uL 0.3-0.9 18 Eos # 0.55 K/uL High 0.0-0.5 18 Baso # 0.15 K/uL High 0.0-0.1 18 Comprehensive Metabolic Panel 07/11/2017 Glucose 90 mg/dL 74-106 18 BUN 8 mg/dL 7-18 18 Creatinine 1.0 mg/dL 0.6-1.3 18 Glom Filtration Rate, Estimate 58 mL/min >60 18 If >60 mL/min >60 18, 19 BUN/Creat 8.0 ratio 18 Sodium 143 mmol/L 136-145 18 Potassium 4.2 mmol/L 3.5-5.1 18 Chloride 108 mmol/L High 98-107 18 Carbon Dioxide 31 mmol/L 21-32 18 Anion Gap 4 mEq/L Low 8-16 18 Calcium 9.7 mg/dL 8.5-10.1 18 Total Protein 7.4 g/dL 6.4-8.2 18 Albumin 3.5 g/dL 3.4-5.0 18 Globulin 3.9 g/dL 1.9-4.3 18 Alb/Glob 0.9 ratio 18 Bilirubin,Total 0.4 mg/dL 0.2-1.0 18 Sgot/Ast 21 U/L 15-37 18 SGPT/Alt 22 U/L 12-78 18 Alkaline Phosphatase 79 U/L 45-117 18 Laboratory test finding 07/11/2017 Sedimentation Rate 20 mm/hr 0-30 18, 20 Vitamin B12 And Folate 07/11/2017 Vitamin B12 527 pg/mL 193-986 18 Folic Acid > 20.0 ng/mL High 3.1-17.5 18 Laboratory test finding 07/11/2017 Ferritin 8 ng/mL 8-252 18 Vitamin D,25-Hydroxy 43.0 ng/mL 30.0-100.0 18, 21 Iron-Tibc-%Sat 07/11/2017 Serum Iron 82 g/dL 50-170 18 Total Iron Binding Capacity 392 g/dL 250-450 18 Transferrin %Saturation 21 % 12-57 18 Ua Routine 04/22/2017 Urine Color YELLOW Yellow 22 Urine Clarity CLOUDY Clear 22 Urine Glucose - Dipstick NEGATIVE mg/dL Negative 22 Urine Bilirubin - Dipstick NEGATIVE Negative 22 Urine Ketone NEGATIVE mg/dL Negative 22 Urine Specific [place] 1.015 1.010-1.030 22 Urine Blood SMALL Negative 22 Urine PH 8.0 High 6.5-7.5 22 Urine Protein - Dipstick NEGATIVE mg/dL Negative 22 Urine Urobilinogen - Dipstick 0.2 E.U./dL 0.2-1.0 22 Urine Nitrite - Dipstick NEGATIVE Negative 22 Urine Leuk Esterase NEGATIVE Negative 22 Urine RBC 2-5 rbc/hpf 0-2 22 Urine WBC NONE SEEN wbc/hpf 0-7 22 Urine Epithelial Cells MODERATE /lpf None Seen 22, 23 Urine Bacteria FEW None Seen 22 Urine Amorph Sediment MODERATE Negative 22 Source: URINE, CLEAN CAT <SEE NOTE> 22, 24 Urine Culture 04/22/2017 Urine Culture URETHRAL JENNY 22 Quantity > 100,000 CFU/mL 22, 25 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) 26, 27 Detection detection Director Review (SEE NOTE) 26, 28 Background (SEE NOTE) 26, 29 Laboratory test finding 01/08/2017 Ferritin 9 ng/mL 8-252 30 Vitamin D,25-Hydroxy 37.4 ng/mL 30.0-100.0 30, 31 CBS W/Automated Diff 01/08/2017 White Blood Count 6.5 K/uL 3.1-10.7 30 Red Blood Count 4.41 M/uL 3.90-5.40 30 Hemoglobin 13.3 gm/dL 11.6-15.8 30 Hematocrit 40.6 % 36.0-46.1 30 Mean Cell Volume 92.1 fl 80.9-99.0 30 Mean Corpuscular HGB 30.2 pg 25.9-32.7 30 Mean Corpuscular HGB Conc 32.8 g/dL 30.8-34.3 30 Platelet Count 440 K/uL High 150-400 30 Red Cell Distri Width SD 45.6 fl 3-47 30 Red Cell Distri Width %CV 13.9 % 11.7-14.4 30 Mean Platelet Volume 9.4 fL 8.9-12.4 30 Neut% 51.3 % 40.4-72.8 30 Lymph % 38.0 % 20.0-42.0 30 Grady % 6.6 % 4.3-13.2 30 Eo% 3.2 % 0.0-6.6 30 Bas% 0.9 % 0.0-1.1 30 Neut# 3.31 K/uL 1.8-7.0 30 Lymph # 2.46 K/uL 1.0-4.0 30 Grady # 0.43 K/uL 0.3-0.9 30 Eos # 0.21 K/uL 0.0-0.5 30 Baso # 0.06 K/uL 0.0-0.1 30 Laboratory test finding 01/08/2017 Sedimentation Rate 33 mm/hr High 0-30 30, 32 Iron-Tibc-%Sat 01/08/2017 Serum Iron 68 g/dL 50-170 30 Total Iron Binding Capacity 394 g/dL 250-450 30 Transferrin %Saturation 17 % 12-57 30 Vitamin B12 And Folate 01/08/2017 Vitamin B12 1491 pg/mL High 193-986 30 Folic Acid 42.9 ng/mL High 3.1-17.5 30 Laboratory test finding 10/25/2016 Ferritin 33 ng/mL 8-252 30 Vitamin D,25-Hydroxy 45.0 ng/mL 30.0-100.0 30, 33 Slide Review (SEE NOTE) 30, 34 CBS W/Automated Diff 10/25/2016 White Blood Count 10.1 K/uL 3.1-10.7 30 Red Blood Count 4.61 M/uL 3.90-5.40 30 Hemoglobin 13.9 gm/dL 11.6-15.8 30 Hematocrit 42.5 % 36.0-46.1 30 Mean Cell Volume 92.2 fl 80.9-99.0 30 Mean Corpuscular HGB 30.2 pg 25.9-32.7 30 Mean Corpuscular HGB Conc 32.7 g/dL 30.8-34.3 30 Platelet Count 521 K/uL High 150-400 30 Red Cell Distri Width SD 46.6 fl 3-47 30 Red Cell Distri Width %CV 14.3 % 11.7-14.4 30 Mean Platelet Volume 8.9 fL 8.9-12.4 30 Neut% 62.6 % 40.4-72.8 30 Lymph % 27.9 % 20.0-42.0 30 Grady % 6.7 % 4.3-13.2 30 Eo% 1.9 % 0.0-6.6 30 Bas% 0.9 % 0.0-1.1 30 Neut# 6.30 K/uL 1.8-7.0 30 Lymph # 2.80 K/uL 1.0-4.0 30 Grady # 0.67 K/uL 0.3-0.9 30 Eos # 0.19 K/uL 0.0-0.5 30 Baso # 0.09 K/uL 0.0-0.1 30 Laboratory test finding 10/25/2016 Sedimentation Rate 13 mm/hr 0-30 30, 35 Iron-Tibc-%Sat 10/25/2016 Serum Iron 83 g/dL 50-170 30 Total Iron Binding Capacity 375 g/dL 250-450 30 Transferrin %Saturation 22 % 12-57 30 Vitamin B12 And Folate 10/25/2016 Vitamin B12 3114 pg/mL High 193-986 30 Folic Acid 36.5 ng/mL High 3.1-17.5 30 Laboratory test finding 10/03/2016 Gamma Glutamyl 27 U/L 5-85 30 Transpeptidase Immunoglobulins A/G/M, QN, 10/03/2016 Immunoglobulin 733 mg/dL 700-1600 30 Ser G,Quant,Serum Immunoglobulin A 165 mg/dL 87-352 30 Immunoglobulin M 127 mg/dL 26-217 30, 36 Laboratory test finding 10/03/2016 Sedimentation Rate 12 mm/hr 0-30 30, 37 LDH 172 U/L 84-246 30 Iyzm-1-Vwqpgrkqunxob,Serum 2.1 mg/L 0.6-2.4 30 Comprehensive Metabolic Panel 10/03/2016 Glucose 52 mg/dL Low 74-106 30 BUN 11 mg/dL 7-18 30 Creatinine 0.9 mg/dL 0.6-1.3 30 Glom Filtration Rate, Estimate >60 mL/min >60 30 If >60 mL/min >60 30, 38 BUN/Creat 12.2 ratio 30 Sodium 145 mmol/L 136-145 30 Potassium 4.1 mmol/L 3.5-5.1 30 Chloride 107 mmol/L 98-107 30 Carbon Dioxide 31 mmol/L 21-32 30 Anion Gap 7 mEq/L Low 8-16 30 Calcium 9.4 mg/dL 8.5-10.1 30 Total Protein 7.4 g/dL 6.4-8.2 30 Albumin 3.7 g/dL 3.4-5.0 30 Globulin 3.7 g/dL 1.9-4.3 30 Alb/Glob 1.0 ratio 30 Bilirubin,Total 0.4 mg/dL 0.2-1.0 30 Sgot/Ast 28 U/L 15-37 30 SGPT/Alt 31 U/L 12-78 30 Alkaline Phosphatase 82 U/L 45-117 30 Xray 04/10/2016 CT Abdomen & Pelvis W <pending> Contrast Laboratory test finding 04/01/2016 Sedimentation Rate 9 mm/hr 0-30 30 Gamma Glutamyl 04/01/2016 Gamma Glutamyl 59 U/L 5-85 30 Transpeptidase Transpeptidase Is Patient Fasting? <Blank> 30 Urinalysis With Microscopic 04/01/2016 Urine Color YELLOW Yellow 30 Urine Clarity CLEAR Clear 30 Urine Glucose - Dipstick NEGATIVE mg/dL Negative 30 Urine Bilirubin - Dipstick NEGATIVE Negative 30 Urine Ketone NEGATIVE mg/dL Negative 30 Urine Specific [place] 1.020 1.010-1.030 30 Urine Blood MODERATE Negative 30 Urine PH 6.0 Low 6.5-7.5 30 Urine Protein - Dipstick NEGATIVE mg/dL Negative 30 Urine Urobilinogen - Dipstick 0.2 E.U./dL 0.2-1.0 30 Urine Nitrite - Dipstick NEGATIVE Negative 30 Urine Leuk Esterase TRACE Negative 30 Urine RBC 2-5 rbc/hpf 0-2 30 Urine WBC 2-5 wbc/hpf 0-7 30 Urine Epithelial Cells FEW /lpf None Seen 30 Urine Mucus SMALL None Seen 30 Source: <Blank> 30 LDH 04/01/2016 LDH 194 U/L 84-246 30 Is Patient Fasting? <Blank> 30 Laboratory test 04/01/2016 Rrqn-9-Hrqislrihhaus,Serum 2.1 mg/L 0.6-2.4 30 finding Immunoglobulins 04/01/2016 Immunoglobulin G,Quant,Serum 916 mg/dL 700- 1600 30 A/G/M, QN, Ser Immunoglobulin A 213 mg/dL 87-352 30 Immunoglobulin M 168 mg/dL 26-217 30, 39 Comprehensive Metabolic Panel 04/01/2016 Glucose 44 mg/dL Low 74-106 30 BUN 14 mg/dL 7-18 30 Creatinine 1.0 mg/dL 0.6-1.3 30 Glom Filtration Rate, Estimate 58 mL/min >60 30 If >60 mL/min >60 30, 40 BUN/Creat 14.0 ratio 30 Sodium 142 mmol/L 136-145 30 Potassium 3.6 mmol/L 3.5-5.1 30 Chloride 103 mmol/L 98-107 30 Carbon Dioxide 28 mmol/L 21-32 30 Anion Gap 11 mEq/L 8-16 30 Calcium 9.2 mg/dL 8.5-10.1 30 Total Protein 7.7 g/dL 6.4-8.2 30 Albumin 3.9 g/dL 3.4-5.0 30 Globulin 3.8 g/dL 1.9-4.3 30 Alb/Glob 1.0 ratio 30 Bilirubin,Total 0.6 mg/dL 0.2-1.0 30 Sgot/Ast 30 U/L 15-37 30 SGPT/Alt 39 U/L 12-78 30 Alkaline Phosphatase 75 U/L 45-117 30 Is Patient Fasting? <Blank> 30 Jak2 V617F Mutation 03/26/2016 Jak2 V617F mutation (SEE NOTE) 30, 41 Detection detection Director Review (SEE NOTE) 30, 42 Background (SEE NOTE) 30, 43 Vitamin B12 And Folate 01/08/2016 Vitamin B12 764 pg/mL 193-986 Folic Acid 63.4 ng/mL High 3.1-17.5 Laboratory test finding 01/08/2016 Vitamin D,25-Hydroxy 41.7 ng/mL 30.0- 100.0 44 LDH 204 U/L 84-246 Uric Acid 6.1 mg/dL High 2.6-6.0 CBC W/Automated Diff 01/08/2016 White Blood Count [...] % 40.4-72.8 Lymph % 34.3 % 17.0-46.1 Grady % 7.3 % 4.3-13.2 Eo% 2.7 % 0.0-6.6 Bas% 1.0 % 0.0-1.1 Neut# 4.44 K/uL 1.8-7.0 Lymph # 2.78 K/uL 1.8-7.0 Grady # 0.59 K/uL 0.3-0.9 Eos # 0.22 K/uL 0.0-0.5 Baso # 0.08 K/uL 0.0-0.1 Laboratory test finding 01/08/2016 C-Reactive Protein,Cardiac 3.04 mg/L < 3.0 Sedimentation Rate 18 mm/hr 0-30 Iron-Tibc-%Sat 01/08/2016 Serum Iron 67 g/dL 50-170 Total Iron Binding Capacity 374 g/dL 250-450 Transferrin %Saturation 18 % 12-57 Laboratory test finding 01/08/2016 Ferritin 42 ng/mL 8-252 Type And Screen 01/04/2016 Patient Blood Type [...] Negative Urine Protein Negative Negative Urine Specific [place] 1.010 1.010-1.030 Urine Urobilinogen 0.2 0.2-1.0 Urine pH 6.0 Low 6.5-7.5 1 R35.0 R39.15 2 10,000 - 100,000 CFU/mL 3 D47.3 4 Method: Sediplast Modified Westergren 5 Vitamin D deficiency has been defined by the [place] of [employer] and an Endocrine Society practice guideline as a level of serum 25-OH vitamin D less than 20 ng/mL (1,2). The Endocrine Society went on to further define vitamin D insufficiency as a level between 21 and 29 ng/mL (2). 1. IOM ([place] of [employer]). 2010. Dietary reference intakes for calcium and D. [place]: The National Academies Press. 2. Nan MF, Nupur HAIDER, Abby ASCENCIO, et al. Evaluation, treatment, and prevention of vitamin D deficiency: an Endocrine Society clinical practice guideline. JCEM. 2010; 96(7):1911-30. Performed at: [facility] [address] [id number] [employer] Inspector: Abigail Rivera MD, Phone: [phone] Note: Persistent reduction for 3 months or more in an eGFR <60 mL/min/1.73 m2 defines CKD. Patients with eGFR values >/=60 mL/min/1.73 m2 may also have CKD if evidence of persistent proteinuria is present. The original MDRD equation for estimated GFR is not valid for patients less than 18 years of age. Additional information may be found at www.kdoqi.org. 7 Performed at: [facility] [address] [address] [id number] Agricultural Chemicals Inspector: Abigail Rivera MD, Phone: [phone] M71.21 M79.604 R60.9 D47.3 9 Performed at: [facility] [address] [id number] Agricultural Chemicals Inspector: Abigail Rivera MD, Phone: [phone] Note: Persistent reduction for 3 months or more in an eGFR <60 mL/min/1.73 m2 defines CKD. Patients with eGFR values >/=60 mL/min/1.73 m2 may also have CKD if evidence of persistent proteinuria is present. The original MDRD equation for estimated GFR is not valid for patients less than 18 years of age. Additional information may be found at www.kdoqi.org. 11 Vitamin D deficiency has been defined by the [place] of [employer] and an Endocrine Society practice guideline as a level of serum 25-OH vitamin D less than 20 ng/mL (1,2). The Endocrine Society went on to further define vitamin D insufficiency as a level between 21 and 29 ng/mL (2). 1. IOM ([place] of [employer]). 2010. Dietary reference intakes for calcium and D. [place]: The National AcademmobiDEOS Press. 2. Nan MF, Nupur NC, Abby ASCENCIO, et al. Evaluation, treatment, and prevention of vitamin D deficiency: an Endocrine Society clinical practice guideline. JCEM. 2010; 96(7):1911-30. Performed at: RN - [facility] [address] [id number] Agricultural Chemicals Inspector: Abigail Rivera MD, Phone: [phone] 12 Method: Sediplast Modified Westergren 13 R31.9 14 POSSIBLE UROGENITAL CONTAMINATION. 15 URINE, CLEAN CATCH 16 Note: Persistent reduction for 3 months or more in an eGFR <60 mL/min/1.73 m2 defines CKD. Patients with eGFR values >/=60 mL/min/1.73 m2 may also have CKD if evidence of persistent proteinuria is present. The original MDRD equation for estimated GFR is not valid for patients less than 18 years of age. Additional information may be found at www.kdoqi.org. 17 10,000 - 50,000 CFU/mL 18 Z02.9 19 Note: Persistent reduction for 3 months or more in an eGFR <60 mL/min/1.73 m2 defines CKD. Patients with eGFR values >/=60 mL/min/1.73 m2 may also have CKD if evidence of persistent proteinuria is present. The original MDRD equation for estimated GFR is not valid for patients less than 18 years of age. Additional information may be found at www.kdoqi.org. 20 Method: Sediplast Modified Westergren 21 Vitamin D deficiency has been defined by the [place] of Medicine and an Endocrine Society practice guideline as a level of serum 25-OH vitamin D less than 20 ng/mL (1,2). The Endocrine Society went on to further define vitamin D insufficiency as a level between 21 and 29 ng/mL (2). 1. IOM ([place] of Medicine). 2010. Dietary reference intakes for calcium and D. [place]: The National Academies Press. 2. Nan MF, Nupur HAIDER, Abby ASCENCIO, et al. Evaluation, treatment, and prevention of vitamin D deficiency: an Endocrine Society clinical practice guideline. JCEM. 2010; 96(7):1911-30. Performed at: [address] [id number] Agricultural Chemicals Inspector: Abigail Rivera MD, Phone: [phone] 22 R31.21 23 POSSIBLE UROGENITAL CONTAMINATION. 24 URINE, CLEAN CATCH 25 > 100,000 CFU/mL 26 D47.3 N85.00 R31.9 27 Result: NEGATIVE for the JAK2 V617F mutation. [...] detected in all patients with these disorders. 28 Dylon Cox MD, PhD Director, Molecular Oncology [facility] [place] [address] 29 JAK2 is a cytoplasmic tyrosine kinase with a spencer role in signal transduction from multiple hematopoietic growth factor receptors. A point mutation within exon 14 of the JAK2 gene ([id number]) encoding a valine to phenylalanine substitution at [...] Diagnosis. Arriola Clin Proc 2005;80(7):947-958. Performed at: - [facility] [place], [place] [id number] Agricultural Chemicals Inspector: Carol Jones MD, Phone: [phone] Performed at: [facility] [address] [place], [place] [id number] Agricultural Chemicals Inspector: Carol Jones MD, Phone: [phone] 30 D47.3 31 Vitamin D deficiency has been defined by the [place] of Medicine and an Endocrine Society practice guideline as a level of serum 25-OH vitamin D less than 20 ng/mL (1,2). The Endocrine Society went on to further define vitamin D insufficiency as a level between 21 and 29 ng/mL (2). 1. IOM ([place] of Medicine). 2010. Dietary reference intakes for calcium and D. [place]: The National Academies Press. 2. Nan MF, Nupur [place], Abby ASCENCIO, et al. Evaluation, treatment, and prevention of vitamin D deficiency: an Endocrine Society clinical practice guideline. JCEM. 2010; 96(7):1911-30. Performed at: [facility] [id number] Agricultural Chemicals Inspector: Abigail Rivera MD, Phone: [phone] 32 Method: Sediplast Modified Lilly 33 Vitamin D deficiency has been defined by the [place] of Medicine and an Endocrine Society practice guideline as a level of serum 25-OH vitamin D less than 20 ng/mL (1,2). The Endocrine Society went on to further define vitamin D insufficiency as a level between 21 and 29 ng/mL (2). 1. IOM ([place] of Medicine). 2010. Dietary reference intakes for calcium and D. [place]: The National Academies Press. 2. Nan MF, Nupur HAIDER, Abby ASCENCIO, et al. Evaluation, treatment, and prevention of vitamin D deficiency: an Endocrine Society clinical practice guideline. JCEM. 2010; 96(7):1911-30. Performed at: [address] [id number] Agricultural Chemicals Inspector: Abigail Rivera MD, Phone: [phone] 34 Instrument flagged sample for slide review. Less than 10% Bands seen, no other immature WBC's seen. RBC morphology essentially normal. Platelet estimate=MODERATE INCREASE 35 Method: Sediplast Modified Westergren 36 Performed at: [address] [id number] Agricultural Chemicals Inspector: Abigail Rivera MD, Phone: [phone] 37 Method: Sediplast Modified Westergren 38 Note: Persistent reduction for 3 months or more in an eGFR <60 mL/min/1.73 m2 defines CKD. Patients with eGFR values >/=60 mL/min/1.73 m2 may also have CKD if evidence of persistent proteinuria is present. The original MDRD equation for estimated GFR is not valid for patients less than 18 years of age. Additional information may be found at www.kdoqi.org. 39 Performed at: [address] [id number] Agricultural Chemicals Inspector: Abigail Rivera MD, Phone: [phone] 40 Note: Persistent reduction for 3 months or more in an eGFR <60 mL/min/1.73 m2 defines CKD. Patients with eGFR values >/=60 mL/min/1.73 m2 may also have CKD if evidence of persistent proteinuria is present. The original MDRD equation for estimated GFR is not valid for patients less than 18 years of age. Additional information may be found at www.kdoqi.org. 41 Result: NEGATIVE for the JAK2 V617F mutation. [...] detected in all patients with these disorders. 42 Boone Delgado MS, PhD, FACB Hair Weaver [facility] [place], [place] 43 JAK2 is a cytoplasmic tyrosine kinase with a spencer role in signal transduction from multiple hematopoietic growth factor receptors. A point mutation within exon 14 of the JAK2 gene (Y5000T) encoding a valine to phenylalanine substitution at [...] Diagnosis. Arriola Clin Proc 2005;80(7):947-958. Performed at: [facility] [address] [place], [place] [id number] Agricultural Chemicals Inspector: Carol Jones MD, Phone: [phone] Performed at: [facility] [address] [id number] Agricultural Chemicals Inspector: Carol Jones MD, Phone: [phone] 44 Vitamin D deficiency has been defined by the [place] of Medicine and an Endocrine Society practice guideline as a level of serum 25-OH vitamin D less than 20 ng/mL (1,2). The Endocrine Society went on to further define vitamin D insufficiency as a level between 21 and 29 ng/mL (2). 1. IOM ([place] of Medicine). 2010. Dietary reference intakes for calcium and D. [place]: The National Academies Press. 2. Nan MF, Nupur HAIDER, Abby ASCENCIO, et al. Evaluation, treatment, and prevention of vitamin D deficiency: an Endocrine Society clinical practice guideline. JCEM. 2010; 96(7):5581-30. Performed at: RN - [facility] [address] [id number] Agricultural Chemicals Inspector: Abigail Rivera MD, Phone: [phone] Procedures Date CPT Code Description Status 12/31/2017 78858 Theraputic Or Diagnostic Injection Completed 04/07/2016 61782 Aspiration/Injection joint Completed intermediate(wrist/ankle/elbow/olbursa 03/13/2010 55646 EKG Interpretation And Report Only Completed Encounters Type Date Location Provider CPT E/M Dx Office Visit 12/31/2017 2:30p [place] [address] D47.3 E53.9 E61.1 Office Visit 12/09/2017 9:30a [place] [address] D47.3 R31.9 I82.402 Office Visit 10/20/2017 10:15a Urology Francis Middleton M.D. 01086 R31.9 Office Visit 07/18/2017 9:00a [place] [address] D47.3 R31.9 F32.89 Office Visit 04/22/2017 11:00a Urology Francis Middleton M.D. 42574 R31.9 Office Visit 01/15/2017 9:00a [place] [address] D47.3 R31.9 N85.00 F32.89 Office Visit 11/19/2016 8:30a [place] [address] D47.3 R31.9 N85.00 F32.89 Office Visit 10/25/2016 10:00a [place] [address] D47.3 R10.30 J01.90 R93.8 R31.9 Office Visit 04/17/2016 10:30a [place] [address] D47.3 R19.4 Office Visit 04/07/2016 10:47a [place] [address] M79.641 M79.641 Office Visit 04/01/2016 9:00a [place] [address] D47.3 R19.4 Office Visit 2016 3:00p [place] [address] D47.3 Office Visit 01/08/2016 1:00p [place] [address] D47.3 Office Visit 11/23/2015 12:29p [place] [address] R07.9 Plan of Care Future Appointment(s):09/14/2018 9:00 am - Oncology Nurse at Oncology Lsnpem5301/2019 2:00 pm - Antionette Will DO at Oncology Ygvkcf7504/23/2018 10:30 am - Francis Middleton M.D. at Urology
--- OUTSIDE RECORDS SUMMARY | 2018-04-20 13:38 | XMS REPORT ---
:1945 External Reference #:[id number] Author Organization [facility] Address [address], [address] [place] [address] Phone [phone] Care Team Providers Name Role Phone Derrell Gandara MD Care Team Information Braille Teacher Unavailable Derrell Gandara MD Primary Care Physician Unavailable Payers Type Date Identification Numbers Payment Provider Subscriber Medicare Primary Effective: Policy Number: Medicare Josiane Shafer 2018 [id number] PayID: [id number] [address] [place] [address] Medicare Primary Expires: 2018 Policy Number: [id number] Medicare Josiane Shafer PayID: [id number] [address] [place] [address] [facility] Part B Policy Number: [id number] [facility] Josiane Shafer PayID: [id number] [address] [place] [address] Problems Date Description Provider Status Onset: 01/08/2016 [...] /0000 every [place] [address]Maki take 1 Unknown /0000 Part capsule by [...] a week Azelastine HCL Active Solution 0.15% [place] 1 2 Unknown (Nasal) /0000 Sprays In [...] 2 weeks Azelastine HCL Hx Solution 0.15% [place] 1 2 Unknown (Nasal) /0000 Sprays In [...] lb BSA (Body Surface Area) 1.73 m2 [place] body weight in kilograms 54 O2 % [...] kg/m2 BSA (Body Surface Area) 1.79 m2 [place] body weight in kilograms 57 O2 % [...] kg/m2 BSA (Body Surface Area) 1.80 m2 [place] body weight in kilograms 58 O2 % BldC Oximetry 97 % Results Test Date Test Result H/L Range Note Ua RFX Micro & Culture II 01/30/2018 Urine Color STRAW Yellow 1 Urine Clarity CLEAR Clear 1 Urine Glucose - Dipstick NEGATIVE mg/dL Negative 1 Urine Bilirubin - Dipstick NEGATIVE Negative 1 Urine Ketone NEGATIVE mg/dL Negative 1 Urine Specific [place] <=1.005 Low 1.010-1.030 1 Urine Blood TRACE [...] 3 Lymph % 34.6 % 20.0-42.0 3 Bertie % 8.1 % 4.3-13.2 3 Eo% 2.8 % 0.0-6.6 3 Bas% 2.0 % High 0.0-1.1 3 Neut# 2.68 K/uL 1.8-7.0 3 Lymph # 1.76 K/uL 1.0-4.0 3 Bertie # 0.41 K/uL 0.3-0.9 3 Eos # [...] 8 Lymph % 38.4 % 20.0-42.0 8 Bertie % 7.5 % 4.3-13.2 8 Eo% 2.5 % 0.0-6.6 8 Bas% 1.2 % High 0.0-1.1 8 Neut# 3.44 K/uL 1.8-7.0 8 Lymph # 2.62 K/uL 1.0-4.0 8 Bertie # 0.51 K/uL 0.3-0.9 8 Eos # 0.17 K/uL 0.0-0.5 8 Baso # 0.08 K/uL 0.0-0.1 8 Ua RFX Micro & Culture II 10/20/2017 Urine Color YELLOW Yellow 13 Urine Clarity CLEAR Clear 13 Urine Glucose - Dipstick NEGATIVE mg/dL Negative 13 Urine Bilirubin - Dipstick NEGATIVE Negative 13 Urine Ketone NEGATIVE mg/dL Negative 13 Urine Specific [place] 1.010 1.010-1.030 13 Urine Blood SMALL Negative [...] 13 Lymph % 38.1 % 20.0-42.0 13 Bertie % 6.7 % 4.3-13.2 13 Eo% 2.2 % 0.0-6.6 13 Bas% 1.3 % High 0.0-1.1 13 Neut# 3.31 K/uL 1.8-7.0 13 Lymph # 2.44 K/uL 1.0-4.0 13 Bertie # 0.43 K/uL 0.3-0.9 13 Eos # 0.14 K/uL 0.0-0.5 13 Baso # 0.08 K/uL 0.0-0.1 13 Ua RFX Micro & Culture II 07/18/2017 Urine Color YELLOW Yellow 13 Urine Clarity CLEAR Clear 13 Urine Glucose - Dipstick NEGATIVE mg/dL Negative 13 Urine Bilirubin - Dipstick NEGATIVE Negative 13 Urine Ketone NEGATIVE mg/dL Negative 13 Urine Specific [place] <=1.005 Low 1.010-1.030 13 Urine Blood TRACE [...] 18 Lymph % 28.6 % 20.0-42.0 18 Bertie % 7.0 % 4.3-13.2 18 Eo% 8.0 % High 0.0-6.6 18 Bas% 2.2 % High 0.0-1.1 18 Neut# 3.73 K/uL 1.8-7.0 18 Lymph # 1.97 K/uL 1.0-4.0 18 Bertie # 0.48 K/uL 0.3-0.9 18 Eos # [...] Ketone NEGATIVE mg/dL Negative 22 Urine Specific [place] 1.015 1.010-1.030 22 Urine Blood SMALL Negative [...] 30 Lymph % 38.0 % 20.0-42.0 30 Bertie % 6.6 % 4.3-13.2 30 Eo% 3.2 % 0.0-6.6 30 Bas% 0.9 % 0.0-1.1 30 Neut# 3.31 K/uL 1.8-7.0 30 Lymph # 2.46 K/uL 1.0-4.0 30 Bertie # 0.43 K/uL 0.3-0.9 30 Eos # [...] 30 Lymph % 27.9 % 20.0-42.0 30 Bertie % 6.7 % 4.3-13.2 30 Eo% 1.9 % 0.0-6.6 30 Bas% 0.9 % 0.0-1.1 30 Neut# 6.30 K/uL 1.8-7.0 30 Lymph # 2.80 K/uL 1.0-4.0 30 Bertie # 0.67 K/uL 0.3-0.9 30 Eos # [...] 30, 37 LDH 172 U/L 84-246 30 Xiuu-2-Nvgdpjmqlewld,Serum 2.1 mg/L 0.6-2.4 30 Comprehensive Metabolic Panel [...] Ketone NEGATIVE mg/dL Negative 30 Urine Specific [place] 1.020 1.010-1.030 30 Urine Blood MODERATE Negative [...] Patient Fasting? <Blank> 30 Laboratory test 04/01/2016 Fodn-9-Kdfwfticfirdu,Serum 2.1 mg/L 0.6-2.4 30 finding Immunoglobulins 04/01/2016 [...] % 40.4-72.8 Lymph % 34.3 % 17.0-46.1 Bertie % 7.3 % 4.3-13.2 Eo% 2.7 % 0.0-6.6 Bas% 1.0 % 0.0-1.1 Neut# 4.44 K/uL 1.8-7.0 Lymph # 2.78 K/uL 1.8-7.0 Bertie # 0.59 K/uL 0.3-0.9 Eos # 0.22 [...] Negative Urine Protein Negative Negative Urine Specific [place] 1.010 1.010-1.030 Urine Urobilinogen 0.2 0.2-1.0 Urine pH 6.0 Low 6.5-7.5 1 R35.0 R39.15 2 10,000 - 100,000 CFU/mL 3 D47.3 4 Method: Sediplast Modified Westergren 5 Vitamin D deficiency has been defined by the [place] of Medicine and an Endocrine Society practice guideline as a level of serum 25-OH vitamin D less than 20 ng/mL (1,2). The Endocrine Society went on to further define vitamin D insufficiency as a level between 21 and 29 ng/mL (2). 1. IOM ([place] of Medicine). 2010. Dietary reference intakes for calcium and D. [place]: The National Academies Press. 2. Nan MF, Nupur HAIDER, Abby ASCENCIO, et al. Evaluation, treatment, and prevention of vitamin D deficiency: an Endocrine Society clinical practice guideline. JCEM. 2010; 96(7):1911-30. Performed at: [facility] [address] [id number] Dinkey Mechanic: Abigail Rivera MD, Phone: [phone] 6 Note: Persistent reduction for 3 months [...] found at www.kdoqi.org. 7 Performed at: [facility] [address] [id number] Dinkey Mechanic: Abigail Rivera MD, Phone: [phone] 8 M71.21 M79.604 R60.9 D47.3 9 Performed at: [facility] [address] [id number] Dinkey Mechanic: Abigail Rivera MD, Phone: [phone] 10 Note: Persistent reduction for 3 months [...] D deficiency has been defined by the [place] of Medicine and an Endocrine Society practice guideline as a level of serum 25-OH vitamin D less than 20 ng/mL (1,2). The Endocrine Society went on to further define vitamin D insufficiency as a level between 21 and 29 ng/mL (2). 1. IOM ([place] of Medicine). 2010. Dietary reference intakes for calcium and D. [place]: The National AcademJing[employer] Press. 2. Nan MF, Nupur [place], Abby ASCENCIO, et al. Evaluation, treatment, and prevention of vitamin D deficiency: an Endocrine Society clinical practice guideline. JCEM. 2010; 96(7):1911-30. Performed at: RN - [facility] [address] [id number] Dinkey Mechanic: Abigail Rivera MD, Phone: [phone] 12 Method: Sediplast Modified Westergren 13 R31.9 [...] D deficiency has been defined by the [place] of Medicine and an Endocrine Society practice guideline as a level of serum 25-OH vitamin D less than 20 ng/mL (1,2). The Endocrine Society went on to further define vitamin D insufficiency as a level between 21 and 29 ng/mL (2). 1. IOM ([place] of Medicine). 2010. Dietary reference intakes for calcium and D. [place]: The National Academies Press. 2. Nan MF, Nupur HAIDER, Abby ASCENCIO, et al. Evaluation, treatment, and prevention of vitamin D deficiency: an Endocrine Society clinical practice guideline. JCEM. 2010; 96(7):1911-30. Performed at: [address] [id number] Dinkey Mechanic: Abigail Rivera MD, Phone: [phone] 22 R31.21 23 POSSIBLE UROGENITAL CONTAMINATION. 24 [...] [facility] [place] [address] 29 JAK2 is a cytoplasmic tyrosine kinase with a spencer role in signal transduction from multiple hematopoietic growth factor receptors. A point mutation within exon 14 of the JAK2 gene (Q8214R) encoding a valine to phenylalanine substitution at [...] Arriola Clin Proc 2005;80(7):947-958. Performed at: - [facility] [address] [place], [place] [id number] Dinkey Mechanic: Carol Jones MD, Phone: [phone] Performed at: [facility] [address] [place], [place] [id number] Dinkey Mechanic: Carol Jones MD, Phone: [phone] 30 D47.3 31 Vitamin D deficiency has been defined by the [place] of Medicine and an Endocrine Society practice guideline as a level of serum 25-OH vitamin D less than 20 ng/mL (1,2). The Endocrine Society went on to further define vitamin D insufficiency as a level between 21 and 29 ng/mL (2). 1. IOM ([place] of Medicine). 2010. Dietary reference intakes for calcium and D. [place]: The National Academies Press. 2. Nan MF, Nupur [place], Abby ASCENCIO, et al. Evaluation, treatment, and prevention of vitamin D deficiency: an Endocrine Society clinical practice guideline. JCEM. 2010; 96(7):1911-30. Performed at: [facility] [id number] Dinkey Mechanic: Abigail Rivera MD, Phone: [phone] 32 Method: Sediplast Modified Lilly 33 Vitamin D deficiency has been defined by the [place] of Medicine and an Endocrine Society practice guideline as a level of serum 25-OH vitamin D less than 20 ng/mL (1,2). The Endocrine Society went on to further define vitamin D insufficiency as a level between 21 and 29 ng/mL (2). 1. IOM ([place] of Medicine). 2010. Dietary reference intakes for calcium and D. [place]: The National Academies Press. 2. Nan MF, Nupur HAIDER, Abby ASCENCIO, et al. Evaluation, treatment, and prevention of vitamin D deficiency: an Endocrine Society clinical practice guideline. JCEM. 2010; 96(7):1911-30. Performed at: [address] [id number] Dinkey Mechanic: Abigail Rivera MD, Phone: [phone] 34 Instrument flagged sample for slide review. Less than 10% Bands seen, no other immature WBC's seen. RBC morphology essentially normal. Platelet estimate=MODERATE INCREASE 35 Method: Sediplast Modified Westergren 36 Performed at: [address] [id number] Dinkey Mechanic: Abigail Rivera MD, Phone: [phone] 37 Method: Sediplast Modified Westergren 38 Note: [...] be found at www.kdoqi.org. 39 Performed at: [address] [id number] Dinkey Mechanic: Abigail Rivera MD, Phone: [phone] 40 Note: Persistent reduction for 3 months [...] disorders. 42 Boone Delgado MS, PhD, FACB Rag Willow Operator [facility] [place], [place] 43 JAK2 is a cytoplasmic tyrosine kinase with a spencer role in signal transduction from multiple hematopoietic growth factor receptors. A point mutation within exon 14 of the JAK2 gene (O2292R) encoding a valine to phenylalanine substitution at [...] Diagnosis. Arriola Clin Proc 2005;80(7):947-958. Performed at: [facility] [address] [place], [place] [id number] Dinkey Mechanic: Carol Jones MD, Phone: [phone] Performed at: [facility] [employer] [address], [place] [id number] Dinkey Mechanic: Carol Jones MD, Phone: [phone] 44 Vitamin D deficiency has been defined by the [place] of Medicine and an Endocrine Society practice guideline as a level of serum 25-OH vitamin D less than 20 ng/mL (1,2). The Endocrine Society went on to further define vitamin D insufficiency as a level between 21 and 29 ng/mL (2). 1. IOM ([place] of Medicine). 2010. Dietary reference intakes for calcium and D. [place]: The National Academies Press. 2. Nan MF, Nupur HAIDER, Abby ASCENCIO, et al. Evaluation, treatment, and prevention of vitamin D deficiency: an Endocrine Society clinical practice guideline. JCEM. 2010; 96(7):6231-30. Performed at: RN - [facility] [address] [id number] Dinkey Mechanic: Abigail Rivera MD, Phone: [phone] Procedures Date CPT Code Description Status 12/31/2017 77583 Theraputic Or Diagnostic Injection Completed 04/07/2016 90748 Aspiration/Injection joint Completed intermediate(wrist/ankle/elbow/olbursa 03/13/2010 31162 EKG Interpretation And Report Only Completed Encounters Type Date Location Provider CPT E/M Dx Office Visit 12/31/2017 2:30p [place] [address] D47.3 E53.9 E61.1 Office Visit 12/09/2017 9:30a [place] [address] D47.3 R31.9 I82.402 Office Visit 10/20/2017 10:15a Urology Francis Middleton M.D. 22247 R31.9 Office Visit 07/18/2017 9:00a [place] [address] D47.3 R31.9 F32.89 Office Visit 04/22/2017 11:00a Urology Francis Middleton M.D. 13635 R31.9 Office Visit 01/15/2017 9:00a [place] [address] D47.3 R31.9 N85.00 F32.89 Office Visit 11/19/2016 8:30a [place] [address] D47.3 R31.9 N85.00 F32.89 Office Visit 10/25/2016 10:00a [place] [address] D47.3 R10.30 J01.90 R93.8 R31.9 Office Visit 04/17/2016 10:30a [place] [address] D47.3 R19.4 Office Visit 04/07/2016 10:47a [place] [address] M79.641 M79.641 Office Visit 04/01/2016 9:00a [place] [address] D47.3 R19.4 Office Visit 2016 3:00p [place] [address] D47.3 Office Visit 01/08/2016 1:00p [place] [address] D47.3 Office Visit 11/23/2015 12:29p [place] [address] R07.9 Plan of Care Future Appointment(s):09/14/2018 9:00 am - Oncology Nurse at Oncology Tuuftz5701/2019 2:00 pm - Antionette Will DO at Oncology Htgtdn5004/23/2018 10:30 am - Francis Middleton M.D. at Urology
[2018-04-20 13:43] VITALS: BP 106/57
--- NOTE | 2018-04-20 13:59 | UC ---
Upper Extremity HPI - HPI Summary HPI Summary: 73 y/o female presents to the urgent care accompany by c/o left shoulder and elbow pain s/p falling while raking the lawn yesterday afternoon. Pt reports she got distracted since was going in the drive way and tripped over and fell. No LOC or head injury. states she landed on her left upper arm. Pt states she felt sore yesterday. But this morning she woke up w/ left shoulder pain w/ a mild bruise and left elbow pain w/ mild swelling. Pt has Hx of arthritis. Pt took Tylenol PO yesterday. Pt denies taking anything today. Pt denies fever, numbness or tingling sensation over the left upper extremity, SOB, rib pain, chest pain, abdominal pain, N/V/D. - History of Current Complaint Chief Complaint: UCUpperExtremity Stated Complaint: S/P FALL LEFT SHOULDER Time Seen by Provider: 04/20/18 13:56 Hx Obtained From: Patient Hx Last Menstrual Period: n/a ?: No - Menopausal Onset/Duration: Sudden Onset, Lasting Days - 1 day, Still Present, Worse Since - today Severity Initially: Mild Severity Currently: Mild Pain Intensity: 3 Pain Scale Used: 0-10 Numeric Location Of Pain: Is Discrete @ - left shoulder and left elbow Character: Dull Aggravating Factor(s): Movement, Lifting, Abduction Alleviating Factor(s): OTC Meds, Rest Associated Signs And Symptoms: Positive: Swelling - left elbow and left shoulder , Bruising - mild on left shoulder. Negative: Redness, Fever, Weakness, Numbness/Tingling Related History: Dominant Hand Right - Risk Factors Non-Orthopedic Risk Factor: Negative DVT Risk Factors: Negative Septic Arthritis Risk Factor: Negative - Allergies/Home Medications Allergies/Adverse Reactions: Allergies Allergy/AdvReac Type Severity Reaction Status Date / Time codeine Allergy Anaphylatic Verified 11/05/17 13:15 Shock dicyclomine [From Bentyl] Allergy See Comment Verified 11/05/17 13:15 metronidazole [From Flagyl] Allergy Rash Verified 11/05/17 13:15 Penicillins Allergy Rash Verified 11/05/17 13:15 Jkrthpu-[id number]-Hwn Reductase Allergy Shakes Verified 11/05/17 13:15 Inhibitor Sulfa (Sulfonamide Allergy Rash Verified 11/05/17 13:15 Antibiotics) tramadol Allergy Anxiety Verified 11/05/17 13:15 venlafaxine [From Effexor] Allergy Shakes Verified 11/05/17 13:15 PMH/Surg Hx/FS Hx/Imm Hx Previously Healthy: Yes Endocrine History: Hypothyroidism, Dyslipidemia GI/ History: Gastroesophageal Reflux, Diverticulitis Other GI/ History: Constipation, chronic pancreatitis, IBS - Surgical History Surgical History: Yes Surgery Procedure, Year, and Place: [facility]. D&C. laparoscopy--1980, 1987, 2012. cardiac catheterization. Fx ankle 1979. B/L SALPINGECTOMY--12/2015. B/ L OOPHERECTOMY--12/2015 - Family History Known Family History: Positive: Cardiac Disease, Hypertension, Diabetes Family History: Colon Cancer, liver failure and kidney failure - Social History Occupation: Retired Lives: With Family Alcohol Use: None Substance Use Type: None Smoking Status (MU): Never Smoked Tobacco - Immunization History Most Recent Influenza Vaccination: Fall 2014 Most Recent Tetanus Shot: 2007 Vaccination Up to Date: Yes Review of Systems Constitutional: Negative Skin: Bruising - mild on left shoulder Eyes: Negative ENT: Negative Respiratory: Negative Cardiovascular: Negative Gastrointestinal: Negative Genitourinary: Negative Motor: Negative Neurovascular: Negative Musculoskeletal: Decreased ROM - left shoulder, Other: - left shoulder and elbow pain s/p fall w/ mild swelling Neurological: Negative Psychological: Negative Is Patient Immunocompromised?: No All Other Systems Reviewed And Are Negative: Yes Physical Exam - Summary Physical Exam Summary: Vital Signs Reviewed: Yes GENERAL: Well-Appearing, No Pain Distress, Well-Nourished - female w/o any apparent pain distress Eyes: Positive: Conjunctiva Clear - PERRL,EOMI ENT: Positive: Normal ENT inspection, Hearing grossly normal, Pharyngeal erythema - mild, Nasal drainage - clear, Uvula midline Neck: Positive: Supple, Nontender, No Lymphadenopathy Respiratory: Positive: Chest non-tender, Lungs clear, Normal breath sounds, No respiratory distress Cardiovascular: Positive: RRR, No Murmur, Pulses Normal, Brisk Capillary Refill Abdomen Description: Positive: Nontender, No Organomegaly, Soft. Negative: CVA Tenderness (R), CVA Tenderness (L) Bowel Sounds: Positive: Present Musculoskeletal: LF shoulder: The L shoulder is with/without obvious asymmetry or deformity when compared to the R shoulder. discrete swelling and mild ecchymosis over the acromoclavicular joint w/ mild tenderness to palpation. No crepitus. No bony deformity or prominence of humeral head. No erythema, warmth. No Point Tenderness to palpation over the clavicle, or scapula. positive tenderness over humeral head with mild swelling, NT to palpation of the bicipital groove . NT to palpation of the muscles of the sternocleidomastoid, pectoralis, biceps/triceps, deltoid, trapezius, . Mild Limited ROM due to pain especially in active abduction, positive internal/external rotation, flexion/ extension. "empty can and drop arm negative. Medial aspect of left elbow w/ mild swelling and tender to palpation. FROM of left elbow. No axillary tenderness or lymphadenopathy. Normal sensation over the deltoid and fingers. Distal motor and neurovascular status is intact. Neurological Exam: Normal Psychological Exam: Normal Skin Exam: Normal Triage Information Reviewed: Yes Vital Signs: Initial Vital Signs Temp 97.4 F 04/20/18 13:38 Pulse 87 04/20/18 13:38 Resp 14 04/20/18 13:38 BP 106/57 04/20/18 13:38 Pulse Ox 98 04/20/18 13:38 Upper Extremity Course/Dx - Course Course Of Treatment: 73 y/o female presents to the urgent care accompany by c/o left shoulder and elbow pain s/p falling while raking the lawn yesterday afternoon. Pt reports she got distracted since was going in the drive way and tripped over and fell. No LOC or head injury. states she landed on her left upper arm. Pt states she felt sore yesterday. But this morning she woke up w/ left shoulder pain w/ a mild bruise and left elbow pain w / mild swelling. Pt has Hx of arthritis. Pt took Tylenol PO yesterday. Pt denies taking anything today. Pt denies fever, numbness or tingling sensation over the left upper extremity, SOB, rib pain, chest pain, abdominal pain, N/V/ D. Hx obtained. LF shoulder and left elbow X-ray ordered: Impression: No acute osseous injury observed as per radiologist. Pt probably w/ a left shoulder sprain. Pt advised to continue taking tylenol PO to alleviate pain and swelling. Shoulder immobilized with a shoulder sling for 3-4 days. Advised to f/ u with Orthopedic DR Loja referral if not improvement of symptoms in 1 week. D/c instructions explained. Pt understood and agreed w/ plan of care. - Differential Dx/Diagnosis Differential Diagnosis/HQI/PQRI: Arthritis, Contusion, Fracture (Closed), Strain , Sprain Provider Diagnoses: 1- Left shoulder and elbow pain s/p fall. 2- Left shoulder sprain. 3-Left shoulder contusion s/p fall Discharge - Sign-Out/Discharge Documenting (check all that apply): Patient Departure - D/c home All imaging exams completed and their final reports reviewed: Yes - Discharge Plan Condition: Stable Disposition: HOME Patient Education Materials: Contusion in Adults (ED), Shoulder Sprain (ED) Referrals: Derrell Gandara MD [Primary Care Provider] - 1 Week Nolan Loja MD [Medical Doctor] - 1 Week Additional Instructions: 1-Please continue taking Tylenol PO as directed to alleviate pain and swelling. 2-Please apply ice, keep your shoulder immobilized with the shoulder sling for 3 -4 days and then resume movement slowly 3- Please f/u with Orthopedic Dr Loja or your PCP in 1 week is not improvement of symptoms for further evaluation and treatment. - Billing Disposition and Condition Condition: STABLE Disposition: Home
== END 2018-04-20 15:09 | disposition home or self-care (01) ==
LOC: UCCORT 13:25
DX: S43.402A Unspecified sprain of left shoulder joint, initial encounter (principal); S40.012A Contusion of left shoulder, initial encounter; E03.9 Hypothyroidism, unspecified; E78.5 Hyperlipidemia, unspecified; K21.9 Gastro-esophageal reflux disease without esophagitis; K86.1 Other chronic pancreatitis; K58.9 Irritable bowel syndrome, unspecified; M19.90 Unspecified osteoarthritis, unspecified site; K86.81 Exocrine pancreatic insufficiency; W01.198A Fall on same level from slipping, tripping and stumbling with subsequent striking against other object, initial encounter; Y92.9 Unspecified place or not applicable; Z88.0 Allergy status to penicillin; Z88.1 Allergy status to other antibiotic agents; Z88.5 Allergy status to narcotic agent; Z88.8 Allergy status to other drugs, medicaments and biological substances
CPT/HCPCS: 99213; G0463